=== PATIENT | female | born 1930 | race Caucasian/White ===

== ENCOUNTER 2017-04-28 12:13 | Inpatient (IN) ==
--- NOTE | 2017-04-28 12:21 | Emergency Department Note ---
Disposition Clinical Impression: Atrial fibrillation with RVR Congestive heart failure Qualifiers: Qualified Code(s): I50.9 - Disposition: Admitted As Inpatient Condition: Good Chest Pain HPI - General Stated Complaint: from Dr. Noland// [place] Time Seen by Provider: 04/28/17 12:16 Source: patient Mode of arrival: wheelchair Limitations: no limitations Vital Signs Reviewed: Yes Nursing Notes Reviewed: Yes - History of Present Illness HPI Narrative: Patient presents to the ED from her PCPs office with the chief complaint of a high heart rate. Patient reports that she started feeling her heart beating fast yesterday. She also reports increasing shortness of breath and swelling in her legs over the past several weeks. Has a history of CHF. Denies any chest pain. No fevers, but has been having some cough. - Related Data Home Medications Medication Instructions Recorded Confirmed Aspirin [Lo-Dose Aspirin EC] 81 mg PO DAILY 04/28/17 04/28/17 Latanoprost [Xalatan] 1 drop OP QPM 04/28/17 04/28/17 Levothyroxine [Synthroid] 100 mcg PO QAM 04/28/17 04/28/17 Metoprolol XL (24 HR) Succ [Toprol 50 mg PO DAILY 04/28/17 04/28/17 XL] hydroCHLOROthiazide 25 mg PO DAILY 04/28/17 04/28/17 [Hydrochlorothiazide] Allergies Allergy/AdvReac Type Severity Reaction Status Date / Time No Known Allergies Allergy Verified 04/28/17 12:18 All systems ED: reviewed and negative except as stated. Constitutional: Denies: fever Cardiovascular: Reports: edema Respiratory: Reports: cough, dyspnea Gastrointestinal: Denies: vomiting Physical Exam - General Limitations: no limitations General appearance: alert, in no apparent distress - Head Head exam: atraumatic, normocephalic, normal inspection - Neck Neck exam: Present: normal inspection, full ROM, trachea midline - Chest Chest inspection: Present: normal inspection, symmetric chest wall rise - Respiratory Respiratory exam: Present: normal lung sounds bilaterally, other (Chest Rales bilateral bases) - Cardiovascular Cardiovascular exam: Present: tachycardia, irregular rhythm, normal heart sounds - Abdominal Exam Abdominal exam: Present: soft, Non-Tender. Absent: tenderness, distention, guarding, rebound, rigidity - Extremities Exam Extremities exam: Present: normal inspection, full ROM, pedal edema (3+ pitting edema bilaterally equal). Absent: tenderness - Neurological Exam Neurological exam: Present: alert, oriented X3 - Psychiatric Psychiatric exam: Present: normal affect, normal mood - Skin Skin exam: Present: warm, dry, intact, normal color Course Course Narrative: Patient presenting to the ED in A. fib with RVR. Also, likely a CHF exacerbation. We will workup and admit. Rate control with diltiazem. Vital Signs Temperature 98.4 F 04/28/17 12:18 Pulse Rate 150 04/28/17 12:18 Respiratory Rate 16 04/28/17 12:18 Blood Pressure 159/138 04/28/17 12:18 O2 Sat by Pulse Oximetry 92 04/28/17 12:18 Temperature 98 F 04/28/17 14:24 Pulse Rate 80 04/28/17 14:24 Respiratory Rate 16 04/28/17 14:24 Blood Pressure 126/69 04/28/17 16:13 O2 Sat by Pulse Oximetry 98 04/28/17 14:24 Oxygen Delivery Oxygen Delivery Room Air Chest Pain - Medical Records Medical records reviewed: Yes I reviewed the patient's medical records. - Lab Data Lab results reviewed: Yes I reviewed the patient's lab results. Result diagrams: 04/28/17 12:23 04/28/17 12:23 Lab Results 04/28/17 04/28/17 04/28/17 Range/Units 12:23 12:23 12:23 WBC 5.4 (4.3-11.1) K/mcL RBC 4.79 (3.82-4.97) M/mcL Hgb 14.7 (11.5-15.4) g/dL Hct 45.9 H (35.3-44.9) % MCV 95.8 (83.0-100.0) fL MCH 30.7 (28.0-33.3) pg MCHC 32.0 (31.6-35.5) g/dL RDW 13.3 (11.5-14.5) % Plt Count 189 (140-400) K/mcL MPV 9.7 (9.4-12.4) fL Immature Gran % 0.2 (0-4) % Seg Neutrophils % 58.5 % Lymphocytes % 31.9 % Monocytes % 7.2 % Eosinophils % 1.5 % Basophils % 0.7 % Neutrophils # 3.2 (1.6-8.9) K/mcL Lymphocytes # 1.7 (0.6-4.6) K/mcL Monocytes # 0.4 (0.0-1.3) K/mcL Eosinophils # 0.1 (0.0-0.6) K/mcL Basophils # 0.0 (0.0-0.2) K/mcL PT 11.6 (9.4-12.1) Seconds INR 1.1 APTT 32.8 (26.0-36.0) Seconds Sodium (136-145) mEq/L Potassium (3.5-4.5) mEq/L Chloride (98-109) mEq/L Carbon Dioxide (19-29) mEq/L BUN (7-20) mg/dL Creatinine (0.57-1.11) mg/dL Est GFR ( Amer) (> 60) Est GFR (Non-Af Amer) (> 60) BUN/Creatinine Ratio (6-26) Glucose (70-99) mg/dL Calculated Osmolality (280-300) Calcium (8.6-10.8) mg/dL Phosphorus (2.3-4.7) mg/dL Magnesium (1.6-2.6) mg/dL Troponin I (0-0.03) ng/mL B-Natriuretic Peptide 691 H (0-100) pg/mL TSH (0.350-4.840) mcIU/mL Urine Color (Yellow) Urine Clarity (Clear) Urine pH (5.0-8.0) pH Units Ur Specific [place] (1.010-1.025) Urine Protein (Neg-Trace) mg/dL Urine Glucose (UA) (Normal) mg/dL Urine Ketones (Negative) mg/dL Urine Blood (Negative) Urine Nitrite (Negative) Urine Bilirubin (Negative) Urine Urobilinogen (Normal) mg/dL Ur Leukocyte Esterase (Negative) Urine Microscopic RBC (0-3) per hpf Urine Microscopic WBC (0-3) per hpf Ur Squamous Epith Cells (None-Few) per lpf Urine Bacteria (None-Few) per hpf Hyaline Casts (None-Few) per lpf Ur Culture Indicated? (NO) 04/28/17 04/28/17 04/28/17 Range/Units 12:23 12:23 13:38 WBC (4.3-11.1) K/mcL RBC (3.82-4.97) M/mcL Hgb (11.5-15.4) g/dL Hct (35.3-44.9) % MCV (83.0-100.0) fL MCH (28.0-33.3) pg MCHC (31.6-35.5) g/dL RDW (11.5-14.5) % Plt Count (140-400) K/mcL MPV (9.4-12.4) fL Immature Gran % (0-4) % Seg Neutrophils % % Lymphocytes % % Monocytes % % Eosinophils % % Basophils % % Neutrophils # (1.6-8.9) K/mcL Lymphocytes # (0.6-4.6) K/mcL Monocytes # (0.0-1.3) K/mcL Eosinophils # (0.0-0.6) K/mcL Basophils # (0.0-0.2) K/mcL PT (9.4-12.1) Seconds INR APTT (26.0-36.0) Seconds Sodium 142 (136-145) mEq/L Potassium 3.4 L (3.5-4.5) mEq/L Chloride 103 (98-109) mEq/L Carbon Dioxide 29 (19-29) mEq/L BUN 20 (7-20) mg/dL Creatinine 0.92 (0.57-1.11) mg/dL Est GFR ( Amer) > 60 (> 60) Est GFR (Non-Af Amer) 58 L (> 60) BUN/Creatinine Ratio 22 (6-26) Glucose 147 H (70-99) mg/dL Calculated Osmolality 299 (280-300) Calcium 10.0 (8.6-10.8) mg/dL Phosphorus 2.7 (2.3-4.7) mg/dL Magnesium 2.0 (1.6-2.6) mg/dL Troponin I 0.01 (0-0.03) ng/mL B-Natriuretic Peptide (0-100) pg/mL TSH 9.234 H (0.350-4.840) mcIU/mL Urine Color Yellow (Yellow) Urine Clarity Clear (Clear) Urine pH 6.0 (5.0-8.0) pH Units Ur Specific [place] 1.016 (1.010-1.025) Urine Protein 30 H (Neg-Trace) mg/dL Urine Glucose (UA) Normal (Normal) mg/dL Urine Ketones Negative (Negative) mg/dL Urine Blood Negative (Negative) Urine Nitrite Negative (Negative) Urine Bilirubin Negative (Negative) Urine Urobilinogen Normal (Normal) mg/dL Ur Leukocyte Esterase Negative (Negative) Urine Microscopic RBC 0-3 (0-3) per hpf Urine Microscopic WBC 0-3 (0-3) per hpf Ur Squamous Epith Cells Many H (None-Few) per lpf Urine Bacteria None Seen (None-Few) per hpf Hyaline Casts None Seen (None-Few) per lpf Ur Culture Indicated? NO (NO) - Radiology Data Radiology results reviewed: Yes I reviewed the patient's radiology results. - EKG Data EKG attestation: Yes I reviewed and interpreted this EKG. EKG results narrative: A. fib with RVR, rate 150, QRS 88, QTC 354, left axis deviation, no acute ischemic changes
--- NOTE | 2017-04-28 12:21 | Emergency Department Note ---
Disposition Clinical Impression: Atrial fibrillation with RVR, Congestive heart failure Disposition: Admitted As Inpatient Condition: Good General Adult HPI - General Stated complaint: from Dr. Noland// [place] Time Seen by Provider: 04/28/17 12:16 - Related Data Home Medications Medication Instructions Recorded Confirmed Aspirin [Lo-Dose Aspirin EC] 81 mg PO DAILY 04/28/17 04/28/17 Latanoprost [Xalatan] 1 drop OP QPM 04/28/17 04/28/17 Levothyroxine [Synthroid] 100 mcg PO QAM 04/28/17 04/28/17 Metoprolol XL (24 HR) Succ [Toprol 50 mg PO DAILY 04/28/17 04/28/17 XL] hydroCHLOROthiazide 25 mg PO DAILY 04/28/17 04/28/17 [Hydrochlorothiazide] Allergies Allergy/AdvReac Type Severity Reaction Status Date / Time No Known Allergies Allergy Verified 04/28/17 12:18 Course Vital Signs Temperature 98.4 F 04/28/17 12:18 Pulse Rate 150 04/28/17 12:18 Respiratory Rate 16 04/28/17 12:18 Blood Pressure 159/138 04/28/17 12:18 O2 Sat by Pulse Oximetry 92 04/28/17 12:18 Temperature 98 F 04/29/17 07:15 Pulse Rate 101 04/29/17 07:15 Respiratory Rate 16 04/29/17 07:15 Blood Pressure 104/64 04/29/17 07:15 O2 Sat by Pulse Oximetry 97 04/29/17 07:15 Oxygen Delivery Oxygen Delivery Room Air Medical Decision Making - Lab Data Result diagrams: 04/29/17 03:43 04/29/17 03:43 Lab Results 04/28/17 04/28/17 04/28/17 Range/Units 12:23 12:23 12:23 WBC 5.4 (4.3-11.1) K/mcL RBC 4.79 (3.82-4.97) M/mcL Hgb 14.7 (11.5-15.4) g/dL Hct 45.9 H (35.3-44.9) % MCV 95.8 (83.0-100.0) fL MCH 30.7 (28.0-33.3) pg MCHC 32.0 (31.6-35.5) g/dL RDW 13.3 (11.5-14.5) % Plt Count 189 (140-400) K/mcL MPV 9.7 (9.4-12.4) fL Immature Gran % 0.2 (0-4) % Seg Neutrophils % 58.5 % Lymphocytes % 31.9 % Monocytes % 7.2 % Eosinophils % 1.5 % Basophils % 0.7 % Neutrophils # 3.2 (1.6-8.9) K/mcL Lymphocytes # 1.7 (0.6-4.6) K/mcL Monocytes # 0.4 (0.0-1.3) K/mcL Eosinophils # 0.1 (0.0-0.6) K/mcL Basophils # 0.0 (0.0-0.2) K/mcL PT 11.6 (9.4-12.1) Seconds INR 1.1 APTT 32.8 (26.0-36.0) Seconds Sodium (136-145) mEq/L Potassium (3.5-4.5) mEq/L Chloride (98-109) mEq/L Carbon Dioxide (19-29) mEq/L BUN (7-20) mg/dL Creatinine (0.57-1.11) mg/dL Est GFR ( Amer) (> 60) Est GFR (Non-Af Amer) (> 60) BUN/Creatinine Ratio (6-26) Glucose (70-99) mg/dL Calculated Osmolality (280-300) Calcium (8.6-10.8) mg/dL Phosphorus (2.3-4.7) mg/dL Magnesium (1.6-2.6) mg/dL Troponin I (0-0.03) ng/mL B-Natriuretic Peptide 691 H (0-100) pg/mL TSH (0.350-4.840) mcIU/mL Urine Color (Yellow) Urine Clarity (Clear) Urine pH (5.0-8.0) pH Units Ur Specific [place] (1.010-1.025) Urine Protein (Neg-Trace) mg/dL Urine Glucose (UA) (Normal) mg/dL Urine Ketones (Negative) mg/dL Urine Blood (Negative) Urine Nitrite (Negative) Urine Bilirubin (Negative) Urine Urobilinogen (Normal) mg/dL Ur Leukocyte Esterase (Negative) Urine Microscopic RBC (0-3) per hpf Urine Microscopic WBC (0-3) per hpf Ur Squamous Epith Cells (None-Few) per lpf Urine Bacteria (None-Few) per hpf Hyaline Casts (None-Few) per lpf Ur Culture Indicated? (NO) 04/28/17 04/28/17 04/28/17 Range/Units 12:23 12:23 13:38 WBC (4.3-11.1) K/mcL RBC (3.82-4.97) M/mcL Hgb (11.5-15.4) g/dL Hct (35.3-44.9) % MCV (83.0-100.0) fL MCH (28.0-33.3) pg MCHC (31.6-35.5) g/dL RDW (11.5-14.5) % Plt Count (140-400) K/mcL MPV (9.4-12.4) fL Immature Gran % (0-4) % Seg Neutrophils % % Lymphocytes % % Monocytes % % Eosinophils % % Basophils % % Neutrophils # (1.6-8.9) K/mcL Lymphocytes # (0.6-4.6) K/mcL Monocytes # (0.0-1.3) K/mcL Eosinophils # (0.0-0.6) K/mcL Basophils # (0.0-0.2) K/mcL PT (9.4-12.1) Seconds INR APTT (26.0-36.0) Seconds Sodium 142 (136-145) mEq/L Potassium 3.4 L (3.5-4.5) mEq/L Chloride 103 (98-109) mEq/L Carbon Dioxide 29 (19-29) mEq/L BUN 20 (7-20) mg/dL Creatinine 0.92 (0.57-1.11) mg/dL Est GFR ( Amer) > 60 (> 60) Est GFR (Non-Af Amer) 58 L (> 60) BUN/Creatinine Ratio 22 (6-26) Glucose 147 H (70-99) mg/dL Calculated Osmolality 299 (280-300) Calcium 10.0 (8.6-10.8) mg/dL Phosphorus 2.7 (2.3-4.7) mg/dL Magnesium 2.0 (1.6-2.6) mg/dL Troponin I 0.01 (0-0.03) ng/mL B-Natriuretic Peptide (0-100) pg/mL TSH 9.234 H (0.350-4.840) mcIU/mL Urine Color Yellow (Yellow) Urine Clarity Clear (Clear) Urine pH 6.0 (5.0-8.0) pH Units Ur Specific [place] 1.016 (1.010-1.025) Urine Protein 30 H (Neg-Trace) mg/dL Urine Glucose (UA) Normal (Normal) mg/dL Urine Ketones Negative (Negative) mg/dL Urine Blood Negative (Negative) Urine Nitrite Negative (Negative) Urine Bilirubin Negative (Negative) Urine Urobilinogen Normal (Normal) mg/dL Ur Leukocyte Esterase Negative (Negative) Urine Microscopic RBC 0-3 (0-3) per hpf Urine Microscopic WBC 0-3 (0-3) per hpf Ur Squamous Epith Cells Many H (None-Few) per lpf Urine Bacteria None Seen (None-Few) per hpf Hyaline Casts None Seen (None-Few) per lpf Ur Culture Indicated? NO (NO) Critical Care Time Critical Care Time: Yes Total Critical Care Time: 30 Attestation: New-onset A. fib with RVR requiring Cardizem drip Attestation Statement - Attestation Attestation: I examined this patient and my medical decision-making was reviewed with the Resident Physician. I agree with the documented findings, disposition and treatment plan as described except to the extent set forth below. [id number] time provided. Patient said at the recommendation of her primary care provider after being identified to have a tachycardic arrhythmia. Patient appears distressed. Narrow complex irregularly irregular rhythm identified on the monitor. Bilateral peripheral edema on exam. Patient seen in conjunction with Dr. Zuniga
[2017-04-28 12:36] LABS: Basophils % 0.7 %; Eosinophils # 0.1 K/mcL (0.0-0.6); Eosinophils % 1.5 %; Hematocrit 45.9 % (35.3-44.9); Hemoglobin 14.7 g/dL (11.5-15.4); Immature Granulocytes % 0.2 % (0-4); Lymphocytes # 1.7 K/mcL (0.6-4.6); Lymphocytes % 31.9 %; Mean Corpuscular Hemoglobin 30.7 pg (28.0-33.3); Mean Corpuscular Volume 95.8 fL (83.0-100.0); Mean Platelet Volume 9.7 fL (9.4-12.4); Monocytes # 0.4 K/mcL (0.0-1.3); Monocytes % 7.2 %; Neutrophils # 3.2 K/mcL (1.6-8.9); Platelet Count 189 K/mcL (140-400); Red Blood Count 4.79 M/mcL (3.82-4.97); Red Cell Distribution Width 13.3 % (11.5-14.5); Segmented Neutrophils % 58.5 %
[2017-04-28 12:40] LABS: INR 1.1; Prothrombin Time 11.6 Seconds (9.4-12.1)
[2017-04-28 12:42] LABS: Activated Partial Thrombo Time 32.8 Seconds (26.0-36.0)
[2017-04-28 12:48] LABS: BUN/Creatinine Ratio 22 (6-26); Blood Urea Nitrogen 20 mg/dL (7-20); Carbon Dioxide 29 mEq/L (19-29); Chloride 103 mEq/L (98-109); Glucose 147 mg/dL (70-99); Osmolality,Calculated 299 (280-300); Phosphorous 2.7 mg/dL (2.3-4.7); Potassium 3.4 mEq/L (3.5-4.5); Sodium 142 mEq/L (136-145); eGFR For African Americans > 60 (> 60); eGFR For Non-African Americans 58 (> 60)
[2017-04-28] MEDS ORDERED: Azithromycin 500 MG in D5% in Water 250 ML IVPB ONE (13:13)
[2017-04-28 13:47] LABS: Bilirubin,Urine Negative (Negative); Blood,Urine Negative (Negative); Clarity,Urine Clear (Clear); Color,Urine Yellow (Yellow); Glucose,Urine (UA) Normal (Normal); Ketones,Urine Negative (Negative); Leukocyte Esterase,Urine Negative (Negative); Nitrite,Urine Negative (Negative); Protein,Urine 30 mg/dL (Neg-Trace); Specific Gravity,Urine 1.016 (1.010-1.025); Urobilinogen,Urine Normal (Normal)
[2017-04-28 13:49] LABS: Bacteria,Urine None Seen per hpf (None-Few); Hyaline Casts,Urine None Seen per lpf (None-Few); RBC,Urine 0-3 per hpf (0-3); Squamous Epithelial Cell,Urine Many per lpf (None-Few); WBC,Urine 0-3 per hpf (0-3)
[2017-04-28 13:50] LABS: Thyroid Stimulating Hormone 9.234 mcIU/mL (0.350-4.840)
--- NOTE | 2017-04-28 14:46 | Internal Med History&Physical ---
Date of Encounter: 04/28/17 Time of Encounter: 14:41 Assessment and Plan (1) Atrial fibrillation with RVR Current visit: Yes Status: Acute Patient was started in the emergency room Jackie marie. Will start patient on lovenox as her JO-ANN-Vasc score is atleast 4. Check echocardiogram. (2) Congestive heart failure Current visit: Yes Status: Acute Likely due to diastolic dysfunction related to atrial fibrillation with rapid ventricular response. We start the patient on Lasix 40 mg IV daily. Strict intake and output. She never had any workup to r/o coronary artery disease before. Will trend troponin check echocardiogram and cardiology consultation Qualifiers: Qualified Code(s): I50.9 - Heart failure, unspecified Internal Medicine - H&P: HPI Chief complaint: LE swelling History of present illness: Ms. Lopez is a 86 year old female who presents to the emergency room today sent from PCP office and her main complaint was lower extremity swelling. Over the past week or so patient has been noticing bilateral lower extremity swelling pitting in nature. She has also been noticing exertional shortness of breath and shortness of breath laying flat improved by sitting. She denies any sputum production fevers chills. She has been noticing palpitations and wants found to be in atrial fibrillation with Rapid ventricular response. Patient denies any prior cardiac history. No prior known history of coronary artery disease. Past Med Surg Social Fam HX - Past Medical History Medical history: CHF, hyperlipidemia, hypertension Psychiatric history: no psych history - Social History Smoking Status: Never smoker Smokeless Tobacco Status: No Alcohol use: none Drug use: none - Family History Brother History Unknown: Yes Living Status: Hx Family Cardiac Disorders: Yes Father Living Status: Hx Family Cardiac Disorders: Yes Internal Medicine - H&P: Meds Aspirin [Lo-Dose Aspirin EC] 81 mg PO DAILY 04/28/17 [History] Latanoprost [Xalatan] 1 drop OP QPM 04/28/17 [History] Levothyroxine [Synthroid] 100 mcg PO QAM 04/28/17 [History] Metoprolol XL (24 HR) Succ [Toprol XL] 50 mg PO DAILY 04/28/17 [History] hydroCHLOROthiazide [Hydrochlorothiazide] 25 mg PO DAILY 04/28/17 [History] 3 Allergy/AdvReac Type Severity Reaction Status Date / Time No Known Allergies Allergy Verified 04/28/17 12:18 All Systems PM: A 10-system review of systems was performed and is negative for pertinent findings except as documented above in the HPI. Review of systems: 10 point TVU assistances negative except for HPI - Constitutional Vitals: Temp Pulse Resp BP Pulse Ox 98 F 80 16 155/99 98 04/28/17 14:24 04/28/17 14:24 04/28/17 14:24 04/28/17 14:24 04/28/17 14:24 Exam: Gen.: patient is alert oriented times 3 cardiac: variable intensity of S1 due to AFib chest: bilateral basal rales abdomen soft nontender nondistended normal bowel sounds lower extremity 2+ swelling. Neuro: no new focal deficits Internal Med - H&P Results - Labs CBC & Chem 7: 04/28/17 12:23 04/28/17 12:23 Labs: Urine 04/28/17 Range/Units 13:38 Urine Color Yellow (Yellow) Urine Clarity Clear (Clear) Urine pH 6.0 (5.0-8.0) pH Units Ur Specific [place] 1.016 (1.010-1.025) Urine Protein 30 H (Neg-Trace) mg/dL Urine Glucose (UA) Normal (Normal) mg/dL
[2017-04-28] MEDS: Furosemide 40 MG/4 ML VIAL IVP SCH (16:22)
[2017-04-28] MEDS: *HR* Enoxaparin 80 MG/0.8 ML SYRINGE SQ SCH (16:23)
[2017-04-28] MEDS: Latanoprost 2.5 ML BOTTLE BOTH EYES SCH (16:24)
[2017-04-28] MEDS ORDERED: 0.9 % Sodium Chloride 250 ML ONE (17:42)
--- NOTE | 2017-04-28 19:13 | Electrocardiograph Report ---
[place] [id number] Test Date: 2017-04-28 Pat Name: Chanda Lopez Department: 103 Room: 2NE22 Gender: F Music Professor: MSC : [id number] Requested By: Juancarlos Zuniga Order Number: [id number] Reading MD: Sonny Lloyd MD Measurements Intervals [place] Rate: 150 P: NE: 0 QRS: -84 QRSD: 88 T: 162 QT: 268 QTc: 354 Interpretive Statements ATRIAL FIBRILLATION WITH RAPID VENTRICULAR RESPONSE MARKED LEFT AXIS DEVIATION Poor R wave progression ANTEROSEPTAL MYOCARDIAL INFARCTION, PROBABLY OLD Electronically Signed On 04-28-2017 19:11:31 EDT by Sonny Lloyd MD
[2017-04-28 21:33] LABS: Magnesium 1.7 mg/dL (1.6-2.6); Potassium 3.6 mEq/L (3.5-4.5)
[2017-04-29 04:15] LABS: Basophils % 0.5 %; Eosinophils # 0.2 K/mcL (0.0-0.6); Eosinophils % 3.7 %; Hematocrit 37.1 % (35.3-44.9); Immature Granulocytes % 0.2 % (0-4); Lymphocytes # 1.6 K/mcL (0.6-4.6); Lymphocytes % 39.8 %; Mean Corpuscular HGB Conc 32.6 g/dL (31.6-35.5); Mean Corpuscular Hemoglobin 30.8 pg (28.0-33.3); Mean Corpuscular Volume 94.4 fL (83.0-100.0); Mean Platelet Volume 9.8 fL (9.4-12.4); Monocytes # 0.3 K/mcL (0.0-1.3); Platelet Count 165 K/mcL (140-400); Red Blood Count 3.93 M/mcL (3.82-4.97); Red Cell Distribution Width 13.4 % (11.5-14.5); Segmented Neutrophils % 47.8 %
[2017-04-29 04:22] LABS: Hemoglobin 12.1 g/dL (11.5-15.4)
[2017-04-29 04:27] LABS: BUN/Creatinine Ratio 27 (6-26); Blood Urea Nitrogen 20 mg/dL (7-20); Calcium 9.1 mg/dL (8.6-10.8); Carbon Dioxide 31 mEq/L (19-29); Chloride 105 mEq/L (98-109); Creatine Kinase 30 Units/L (29-168); Glucose 92 mg/dL (70-99); Magnesium 1.7 mg/dL (1.6-2.6); Osmolality,Calculated 300 (280-300); Potassium 3.2 mEq/L (3.5-4.5); Sodium 144 mEq/L (136-145); eGFR For African Americans > 60 (> 60); eGFR For Non-African Americans > 60 (> 60)
[2017-04-29] MEDS: *HR* Enoxaparin 80 MG/0.8 ML SYRINGE SQ SCH ×2 (06:06→21:17)
[2017-04-29] MEDS ORDERED: Metoprolol XL (24 HR) Succ 50 MG TAB.ER.24H PO SCH (09:00)
--- NOTE | 2017-04-29 09:52 | Internal Med Progress Note ---
<Mary Jo Jones - Last Filed: 04/29/17 10:09> Date of Encounter: 04/29/17 Time of Encounter: 09:50 - Assessment and plan (1) Atrial fibrillation with RVR Current Visit: Yes Status: Acute Assessment and plan: new onset a fib with RVR during annual check-up at her PCP. Currently on cardizem gtt and HR in the 90s to "one-teens". Cardizem gtt Lovenox due to CHADSVASc score 4 Lasix 40 mg IV BID for pedal edema Cardiology consulted, appreciate recommendations Echo shows normal systolic function, EF 65%, indeterminate diastolic function due to a fib, mildly dilated right ventricle with normal function, severely dilated atria, mild aortic stenosis, mild aortic regurgitation, mild tricuspid regurgitation (2) Congestive heart failure Current Visit: Yes Status: Ruled-out Assessment and plan: no h/o CHF, BNP 691 on admission echo report shows normal LV systolic function, LVEF 65%. indeterminate diastolic function due to atrial fibrillation Qualifiers: Congestive heart failure type: unspecified congestive heart failure type Congestive heart failure chronicity: unspecified congestive heart failure chronicity Qualified Code(s): I50.9 - Heart failure, unspecified (3) Hypothyroidism Current Visit: Yes Status: Chronic Assessment and plan: high TSH 9.234 home synthroid 100 mcg check free T3, T4 synthroid dose will most likely need adjusted Qualifiers: Hypothyroidism type: unspecified Qualified Code(s): E03.9 - Hypothyroidism , unspecified (4) HTN (hypertension) Current Visit: Yes Status: Chronic Assessment and plan: stable continue home medications Qualifiers: Hypertension type: unspecified Qualified Code(s): I10 - Essential (primary ) hypertension (5) Hypokalemia Current Visit: Yes Status: Acute Assessment and plan: lasix being used as therapy for pedal edema - start KCL 20 meq BID while on lasix therapy continue to monitor with daily labs - Subjective Interval history: Patient without complaints this morning, no shortness of breath. States her pedal edema is the same as yesterday. - Constitutional Vitals: Temp Pulse Resp BP Pulse Ox 98 F 101 16 104/64 97 04/29/17 07:15 04/29/17 07:15 04/29/17 07:15 04/29/17 07:15 04/29/17 07:15 General appearance: Present: A&O X 3, pleasant, answers questions appropriately - Head Head exam: Present: atraumatic, normocephalic - Eye Eye exam: Present: PERRL, conjuntiva pink, sclera anicteric Pupils: Present: PERRL - Neck Neck exam general surgery: Present: supple, trachea midline - Respiratory Respiratory exam: Present: CTAB. Absent: accessory muscle use, rales, rhonchi, wheezes - Cardiovascular Cardiovascular exam: Present: irregular rhythm, +S1, +S2, tachycardia. Absent: diastolic murmur, systolic murmur - GI/Abdominal GI/Abdominal exam: Present: normal bowel sounds, soft, no peritoneal signs. Absent: distended, tenderness - Extremities Exam Extremities exam: Present: pedal edema (2-3+ past the knees bilaterally), tenderness (mild due to pitting edema), warm - Neurological Exam Neurological exam: Present: CN II-XII intact, oriented X3, no focal deficits. Absent: facial droop, speech deficit - Skin Skin exam: Present: dry, intact, warm Internal Medicine: Result - Labs CBC & Chem 7: 04/29/17 03:43 04/29/17 03:43 Labs: Short CBC 04/29/17 Range/Units 03:43 WBC 4.1 L (4.3-11.1) K/mcL Hgb 12.1 D (11.5-15.4) g/dL Hct 37.1 (35.3-44.9) % Plt Count 165 (140-400) K/mcL Neutrophils # 2.0 (1.6-8.9) K/mcL BMP 04/28/17 04/29/17 21:02 03:43 Sodium 144 Potassium 3.6 3.2 L Chloride 105 Carbon Dioxide 31 H BUN 20 Creatinine 0.75 Glucose 92 Calcium 9.1 Cardiac Enzymes 04/28/17 04/29/17 Range/Units 21:02 03:43 Troponin I 0.01 0.02 (0-0.03) ng/mL - ABG Interpretation ABG results: PT/INR, D-dimer PT 11.6 Seconds (9.4-12.1) 04/28/17 12:23 - Impressions Impressions Echocardiogram 04/28/17 18:48 Impressions: Normal LV systolic function, LVEF 65%. Indeterminate diastolic function due to atrial fibrillation. Mildly dilated right ventricle with normal function. Severely dilated left atrium. Severely dilated right atrium. Mild aortic stenosis. Mild aortic regurgitation. Mild tricuspid regurgitation. No evidence of pulmonary hypertension. Left Ventricular Wall Motion: Rest Echo Findings All wall segments showed normal motion. Findings: Study Quality * Technically adequate study. ECG Findings * Atrial fibrillation. Left Ventricle * Normal LV systolic function, LVEF 65%. * Normal LV chamber size and wall thickness. * Indeterminate diastolic function due to atrial fibrillation. Right Ventricle * Mildly dilated right ventricle with normal function. Left Atrium * Severely dilated left atrium. Right Atrium * Severely dilated right atrium. Aorta * Normally sized aortic root. Pericardium * There is a trivial pericardial effusion present. IVC * The IVC is not well evaluated. Aortic Valve * Trileaflet aortic valve with moderately thickened/calcified leaflets. * Mild aortic stenosis. * Mild aortic regurgitation. Mitral Valve * Mild mitral annular calcification * No mitral stenosis. * Trace mitral regurgitation. Tricuspid Valve * Normal tricuspid valve structure. * No tricuspid stenosis. * Mild tricuspid regurgitation. * No evidence of pulmonary hypertension. Pulmonic Valve * Normal pulmonic valve structure. * No pulmonic stenosis. * Trace pulmonic regurgitation. - VTE Documentation of Mechanical Device: Intermittent pneumatic compression device Consult Discharge Plan - Plan Referrals: Peyman Noland Jr, MD [Primary Care Provider] - <Imer Erickson - Last Filed: 04/29/17 19:59> Date of Encounter: 04/29/17 - Assessment and plan (1) Atrial fibrillation Current Visit: Yes Status: Acute Qualifiers: Atrial fibrillation type: persistent Qualified Code(s): I48.1 - Persistent atrial fibrillation (2) Hypokalemia Current Visit: Yes Status: Acute (3) HTN (hypertension) Current Visit: Yes Status: Chronic Qualifiers: Hypertension type: essential hypertension Qualified Code(s): I10 - Essential (primary) hypertension (4) Hypothyroidism Current Visit: Yes Status: Chronic Qualifiers: Hypothyroidism type: acquired Qualified Code(s): E03.9 - Hypothyroidism, unspecified (5) Congestive heart failure Current Visit: Yes Status: Suspected Qualifiers: Congestive heart failure type: diastolic Congestive heart failure chronicity: chronic Qualified Code(s): I50.32 - Chronic diastolic (congestive ) heart failure - Constitutional Vitals: Temp Pulse Resp BP Pulse Ox 97.7 F 99 18 115/85 98 04/29/17 15:00 04/29/17 15:00 04/29/17 15:00 04/29/17 15:00 04/29/17 15:00 Internal Medicine: Result - Labs CBC & Chem 7: 04/29/17 03:43 04/29/17 03:43 Labs: Short CBC 04/29/17 Range/Units 03:43 WBC 4.1 L (4.3-11.1) K/mcL Hgb 12.1 D (11.5-15.4) g/dL Hct 37.1 (35.3-44.9) % Plt Count 165 (140-400) K/mcL Neutrophils # 2.0 (1.6-8.9) K/mcL BMP 04/28/17 04/29/17 21:02 03:43 Sodium 144 Potassium 3.6 3.2 L Chloride 105 Carbon Dioxide 31 H BUN 20 Creatinine 0.75 Glucose 92 Calcium 9.1 Cardiac Enzymes 04/28/17 04/29/17 Range/Units 21:02 03:43 Troponin I 0.01 0.02 (0-0.03) ng/mL - ABG Interpretation ABG results: PT/INR, D-dimer PT 11.6 Seconds (9.4-12.1) 04/28/17 12:23 - Impressions Impressions Echocardiogram 04/28/17 18:48 Impressions: Normal LV systolic function, LVEF 65%. Indeterminate diastolic function due to atrial fibrillation. Mildly dilated right ventricle with normal function. Severely dilated left atrium. Severely dilated right atrium. Mild aortic stenosis. Mild aortic regurgitation. Mild tricuspid regurgitation. No evidence of pulmonary hypertension. Left Ventricular Wall Motion: Rest Echo Findings All wall segments showed normal motion. Findings: Study Quality * Technically adequate study. ECG Findings * Atrial fibrillation. Left Ventricle * Normal LV systolic function, LVEF 65%. * Normal LV chamber size and wall thickness. * Indeterminate diastolic function due to atrial fibrillation. Right Ventricle * Mildly dilated right ventricle with normal function. Left Atrium * Severely dilated left atrium. Right Atrium * Severely dilated right atrium. Aorta * Normally sized aortic root. Pericardium * There is a trivial pericardial effusion present. IVC * The IVC is not well evaluated. Aortic Valve * Trileaflet aortic valve with moderately thickened/calcified leaflets. * Mild aortic stenosis. * Mild aortic regurgitation. Mitral Valve * Mild mitral annular calcification * No mitral stenosis. * Trace mitral regurgitation. Tricuspid Valve * Normal tricuspid valve structure. * No tricuspid stenosis. * Mild tricuspid regurgitation. * No evidence of pulmonary hypertension. Pulmonic Valve * Normal pulmonic valve structure. * No pulmonic stenosis. * Trace pulmonic regurgitation. - Attending Attestation I examined this patient and my medical decision-making was reviewed with the Resident Physician on 04/29/17. I agree with the documented findings, disposition and treatment plan as described except to the extent set forth below. Ms Lopez is currently admitted with rapid atrial fibrillation. She remains moderate to high risk due to potential for worsening cardiac status. She remains on IV Cardizem drip. Ms Lopez denies issues. Still on Cardizem drip. No fever or chills. No GI issues. Exam Alert. Comfortable Heart irreg - not tachy now Lungs clear Abd soft I/P 1. Rapid a fib 2. HTN Further diagnoses and plan as above.
[2017-04-29] MEDS: Furosemide 40 MG/4 ML VIAL IVP SCH (10:18)
[2017-04-29] MEDS: Aspirin Enteric Coated 81 MG Tablet PO SCH (10:18)
[2017-04-29] MEDS ORDERED: Metoprolol XL (24 HR) Succ 25 MG TAB.ER.24H PO ONE (10:30)
[2017-04-29 10:47] LABS: Triiodothyronine (T3) Free 2.32 pg/mL (1.71-3.71)
--- NOTE | 2017-04-29 10:57 | Cardiology Consult Note ---
Date of Encounter: 04/29/17 Time of Encounter: 09:00 Assessment and Plan (1) Atrial fibrillation with RVR Current Visit: Yes Status: Acute Atrial fibrillation with RVR. Unknown timining of onset. C/o palpitations for one week. Bilateral atrium enlarged on TTE suggesting longer duration. TTE completed showed EF 65%. Severely enlarged bilateral atrium. There is mild aortic stenosis, mild aortic regurgitation, and mild tricuspid regurgitation. TSH- 9.234. Hospitalist following. On IV cardizem. AVg HR 107 bpm on 12 hour telemetry review. Agree with increasing toprol XL as tolerated. Rate control is recommended. She is a CHADS VASc= 4 for HTN, gender, and age2. I discussed AC with warfarin or NOAC. SHe was previously on warfarin for DVT. She agrees to warfarin or NOAC. I will send RX for eliquis through pharmacy to [facility] check. (2) Congestive heart failure Current Visit: Yes Status: Ruled-out Acute diastolic CHF in the setting of afib with RVR. TTE shows EF 65% Presents with fluid overload. BLE edema noted. CXR shows pulmonary edema. BNP 691. Agree with IV lasix. Will give extra dose today. Potassium 3.2- replaced. Strict I&O and daily weights. Qualifiers: Congestive heart failure type: diastolic Congestive heart failure chronicity: unspecified congestive heart failure chronicity Qualified Code(s) : I50.30 - Unspecified diastolic (congestive) heart failure (3) HTN (hypertension) Current Visit: Yes Status: Chronic Continue to monitor. Qualifiers: Hypertension type: essential hypertension Qualified Code(s): I10 - Essential (primary) hypertension Discussion w patient/family: The assessment and plan as outlined above was discussed with the patient and/or family members who expressed understanding and agreement. All questions were answered. Thank you for involving us in the care of your patient. Please call with any questions. History of Present Illness Consult date: 04/29/17 Requesting physician: Imer Erickson Consult reason: atrial fibrillation with RVR, Acute CHF Chief complaint: Palpitations History of present illness: Ms. Lopez is a 86 year old female with a history of HTN, DVT, and hypothyroidism who presented from PCP office when she was found to be in atrial fibrillation with RVR. She c/o palpitations with exertion and BLE edema for one week. Cardiology consulted for atrial fibrillation with RVR and CHF. She denies previous cardiac history. Denies chest pain or SOB. States that her atenolol was on shortage and she was changed to metoprolol a couple of weeks ago. Past Med Surg Social Fam HX - Past Medical History Medical history: hyperlipidemia, hypertension, other (hypothyroidism) Psychiatric history: no psych history - Social History Smoking Status: Never smoker Smokeless Tobacco Status: No Alcohol use: none Drug use: none - Family History Brother History Unknown: Yes Living Status: Hx Family Cardiac Disorders: Yes Father Living Status: Hx Family Cardiac Disorders: Yes Medications and Allergies Aspirin [Lo-Dose Aspirin EC] 81 mg PO DAILY 04/28/17 [History] Latanoprost [Xalatan] 1 drop OP QPM 04/28/17 [History] Levothyroxine [Synthroid] 100 mcg PO QAM 04/28/17 [History] Metoprolol XL (24 HR) Succ [Toprol XL] 50 mg PO DAILY 04/28/17 [History] hydroCHLOROthiazide [Hydrochlorothiazide] 25 mg PO DAILY 04/28/17 [History] 3 Allergy/AdvReac Type Severity Reaction Status Date / Time No Known Allergies Allergy Verified 04/28/17 12:18 All Systems Review: A 10-system review of systems was performed and is negative for pertinent findings except as documented above in the HPI. Physical Examination Vital Signs, Last 4 Hours Temp Pulse Resp BP Pulse Ox 04/29/17 07:15 98 F 101 16 104/64 97 General: Conversant, No Apparent Distress HEENT: Atraumatic, Normocephaly, Mucus Membranes Moist Neck: No JVD, Normal carotid pulses Cardiac: Other (Irregularly irregular) Lungs: Normal Breath Sounds, No Wheeze, Rales, Rhonchi Neuro: Alert and responsive, No focal deficits noted Abdomen: Soft, Non-Tender Skin: No rashes noted on visualized skin Musculoskeletal: No Chest Wall Tenderness Extremities: No Clubbing, No Cyanosis, Normal Pulses, Other (1+ BLE edema in ankles) Results 04/29/17 03:43 04/29/17 03:43 Lab Results 04/28/17 04/28/17 04/29/17 21:02 21:02 03:43 WBC 4.1 L Hgb 12.1 D Hct 37.1 Plt Count 165 Sodium Potassium 3.6 Chloride Carbon Dioxide BUN Creatinine Glucose Calcium Magnesium 1.7 Troponin I 0.01 04/29/17 04/29/17 03:43 03:43 WBC Hgb Hct Plt Count Sodium 144 Potassium 3.2 L Chloride 105 Carbon Dioxide 31 H BUN 20 Creatinine 0.75 Glucose 92 Calcium 9.1 Magnesium 1.7 Troponin I 0.02 - Imaging and Cardiology Echo: report reviewed - EKG Interpretation EKG results cardiology: personally reviewed Consult Discharge Plan - Plan Referrals: Peyman Noland Jr, MD [Primary Care Provider] -
[2017-04-29] MEDS ORDERED: Furosemide 40 MG/4 ML VIAL IVP ONE (15:00)
[2017-04-29] MEDS: Latanoprost 2.5 ML BOTTLE BOTH EYES SCH (21:17)
[2017-04-30] MEDS: *HR* Enoxaparin 80 MG/0.8 ML SYRINGE SQ SCH ×2 (06:29→17:10)
[2017-04-30] MEDS: Aspirin Enteric Coated 81 MG Tablet PO SCH (08:35)
[2017-04-30] MEDS: Furosemide 40 MG/4 ML VIAL IVP SCH ×2 (08:37→20:28)
[2017-04-30 08:58] LABS: BUN/Creatinine Ratio 26 (6-26); Blood Urea Nitrogen 20 mg/dL (7-20); Calcium 9.5 mg/dL (8.6-10.8); Carbon Dioxide 33 mEq/L (19-29); Chloride 103 mEq/L (98-109); Glucose 105 mg/dL (70-99); Osmolality,Calculated 299 (280-300); Potassium 3.5 mEq/L (3.5-4.5); Sodium 143 mEq/L (136-145); eGFR For African Americans > 60 (> 60); eGFR For Non-African Americans > 60 (> 60)
[2017-04-30] MEDS ORDERED: Metoprolol XL (24 HR) Succ 50 MG TAB.ER.24H PO SCH (09:00)
--- NOTE | 2017-04-30 09:27 | Internal Med Progress Note ---
Addendum entered and electronically signed by Mary Jo Jones DO 10:16: Physical exam: Head: normocephalic, atraumatic Eye: PERRL, conjunctiva pink, sclera anicteric Respiratory: CTAB CV: irregularly irregular rhythm, no murmurs GI: soft, non-tender, bowel sounds present Extremities: 2-3+ pedal edema to the knees bilaterally, mild tenderness due to pitting edema Neuro: A&Ox3, no focal deficits Skin: warm, dry, intact Original Note: <Mary Jo Jones - Last Filed: 04/30/17 09:24> Date of Encounter: 04/30/17 Time of Encounter: 09:24 - Assessment and plan (1) Atrial fibrillation with RVR Current Visit: Yes Status: Acute Assessment and plan: new onset a fib with RVR during annual check-up at her PCP. Cardiology consulted, appreciate recommendations Echo shows normal systolic function, EF 65%, indeterminate diastolic function due to a fib, mildly dilated right ventricle with normal function, severely dilated atria, mild aortic stenosis, mild aortic regurgitation, mild tricuspid regurgitation Still with significant pedal edema. Cardizem gtt stopped this AM. Metoprolol increased form 50 to 75 mg daily yesterday. Patient planning to discharge with coumadin for anticoagulation. Lovenox due to CHADSVASc score 4 Lasix 40 mg IV BID for pedal edema (2) Congestive heart failure Current Visit: Yes Status: Acute Assessment and plan: no h/o CHF, BNP 691 on admission echo report shows normal LV systolic function, LVEF 65%. indeterminate diastolic function due to atrial fibrillation Qualifiers: Congestive heart failure type: diastolic Congestive heart failure chronicity: chronic Qualified Code(s): I50.32 - Chronic diastolic (congestive ) heart failure (3) Hypothyroidism Current Visit: Yes Status: Chronic Assessment and plan: high TSH 9.234; free T3, T4 both normal continue home synthroid 100 mcg Qualifiers: Hypothyroidism type: acquired Qualified Code(s): E03.9 - Hypothyroidism, unspecified (4) HTN (hypertension) Current Visit: Yes Status: Chronic Assessment and plan: stable continue home medications Qualifiers: Hypertension type: essential hypertension Qualified Code(s): I10 - Essential (primary) hypertension (5) Hypokalemia Current Visit: Yes Status: Resolved Assessment and plan: resolved lasix being used as therapy for pedal edema - start KCL 20 meq BID while on lasix therapy continue to monitor with daily labs - Subjective Interval history: Patient without complaints this morning, no shortness of breath. States her pedal edema is the same as yesterday. - Constitutional Vitals: Temp Pulse Resp BP Pulse Ox 98 F 92 16 93/63 94 04/30/17 07:17 04/30/17 07:17 04/30/17 07:17 04/30/17 07:17 04/30/17 07:17 General appearance: Present: A&O X 3, pleasant, answers questions appropriately Internal Medicine: Result - Labs CBC & Chem 7: 04/29/17 03:43 04/30/17 08:40 Labs: BMP 04/29/17 04/30/17 03:43 08:40 Sodium 144 143 Potassium 3.2 L 3.5 Chloride 105 103 Carbon Dioxide 31 H 33 H BUN 20 20 Creatinine 0.75 0.78 Glucose 92 105 H Calcium 9.1 9.5 - ABG Interpretation ABG results: PT/INR, D-dimer PT 11.6 Seconds (9.4-12.1) 04/28/17 12:23 - Impressions Impressions Echocardiogram 04/28/17 18:48 Impressions: Normal LV systolic function, LVEF 65%. Indeterminate diastolic function due to atrial fibrillation. Mildly dilated right ventricle with normal function. Severely dilated left atrium. Severely dilated right atrium. Mild aortic stenosis. Mild aortic regurgitation. Mild tricuspid regurgitation. No evidence of pulmonary hypertension. Left Ventricular Wall Motion: Rest Echo Findings All wall segments showed normal motion. Findings: Study Quality * Technically adequate study. ECG Findings * Atrial fibrillation. Left Ventricle * Normal LV systolic function, LVEF 65%. * Normal LV chamber size and wall thickness. * Indeterminate diastolic function due to atrial fibrillation. Right Ventricle * Mildly dilated right ventricle with normal function. Left Atrium * Severely dilated left atrium. Right Atrium * Severely dilated right atrium. Aorta * Normally sized aortic root. Pericardium * There is a trivial pericardial effusion present. IVC * The IVC is not well evaluated. Aortic Valve * Trileaflet aortic valve with moderately thickened/calcified leaflets. * Mild aortic stenosis. * Mild aortic regurgitation. Mitral Valve * Mild mitral annular calcification * No mitral stenosis. * Trace mitral regurgitation. Tricuspid Valve * Normal tricuspid valve structure. * No tricuspid stenosis. * Mild tricuspid regurgitation. * No evidence of pulmonary hypertension. Pulmonic Valve * Normal pulmonic valve structure. * No pulmonic stenosis. * Trace pulmonic regurgitation. - VTE Documentation of Mechanical Device: Intermittent pneumatic compression device Consult Discharge Plan - Plan Additional Instructions: pcp requested Referrals: Peyman Noland Jr, MD [Primary Care Provider] - <Imer Erickson - Last Filed: 04/30/17 18:43> Date of Encounter: 04/30/17 - Assessment and plan (1) Atrial fibrillation Current Visit: Yes Status: Acute Qualifiers: Atrial fibrillation type: persistent Qualified Code(s): I48.1 - Persistent atrial fibrillation (2) Hypokalemia Current Visit: Yes Status: Resolved (3) HTN (hypertension) Current Visit: Yes Status: Chronic Qualifiers: Hypertension type: essential hypertension Qualified Code(s): I10 - Essential (primary) hypertension (4) Hypothyroidism Current Visit: Yes Status: Chronic Qualifiers: Hypothyroidism type: acquired Qualified Code(s): E03.9 - Hypothyroidism, unspecified (5) Congestive heart failure Current Visit: Yes Status: Acute Qualifiers: Congestive heart failure type: diastolic Congestive heart failure chronicity: acute on chronic Qualified Code(s): I50.33 - Acute on chronic diastolic (congestive) heart failure - Constitutional Vitals: Temp Pulse Resp BP Pulse Ox 97.9 F 94 16 112/85 96 04/30/17 15:20 04/30/17 15:20 04/30/17 15:20 04/30/17 15:20 04/30/17 15:20 Internal Medicine: Result - Labs CBC & Chem 7: 04/29/17 03:43 04/30/17 08:40 Labs: BMP 04/30/17 08:40 Sodium 143 Potassium 3.5 Chloride 103 Carbon Dioxide 33 H BUN 20 Creatinine 0.78 Glucose 105 H Calcium 9.5 - ABG Interpretation ABG results: PT/INR, D-dimer PT 11.6 Seconds (9.4-12.1) 04/28/17 12:23 - Attending Attestation I examined this patient and my medical decision-making was reviewed with the Resident Physician on 04/30/17. I agree with the documented findings, disposition and treatment plan as described except to the extent set forth below. Ms Lopez is currently admitted for acute exac CHF and rapid a fib. She remains moderate to high risk due to potential for worsening cardiac status. Ms Lopez is doing OK. She denies CP. No fever or chills. No GI issues. Exam Alert. Comfortable Mucus membranes dry Heart irreg - not tachy No wheeze Edema still present I/P 1. A fib 2. CHF Further diagnoses and plan as above.
[2017-04-30] MEDS ORDERED: Metoprolol XL (24 HR) Succ 25 MG TAB.ER.24H PO ONE ×2 (10:55→11:02)
--- NOTE | 2017-04-30 11:05 | Cardiology Progress Note ---
Date of Encounter: 04/30/17 Time of Encounter: 10:00 Assessment and Plan (1) Atrial fibrillation with RVR Current Visit: Yes Status: Acute Atrial fibrillation with RVR. Unknown timining of onset. C/o palpitations for one week. Bilateral atrium enlarged on TTE suggesting longer duration. TTE completed showed EF 65%. Severely enlarged bilateral atrium. There is mild aortic stenosis, mild aortic regurgitation, and mild tricuspid regurgitation. TSH- 9.234. Hospitalist following. On IV cardizem. AVg HR 100 bpm on 12 hour telemetry review. HR currently 90- 100. Agree with increasing toprol XL as tolerated. Increase to 100 mg today and d/c cardizem gtt. Rate control is recommended. She is a CHADS VASc= 4 for HTN, gender, and age2. I discussed AC with warfarin or NOAC. She was previously on warfarin for DVT. [employer] hubbard check was 95$. Patient prefers coumadin due to cost. Start coumadin with pharmacy to dose. I will start coumadin clinic referral. Goal INR 2.0-3.0. (2) Congestive heart failure Current Visit: Yes Status: Acute Acute diastolic CHF in the setting of afib with RVR. TTE shows EF 65% Presents with fluid overload. Continues to have significant BLE edema. CXR shows pulmonary edema. BNP 691. Net negative 20 ml. Increase lasix to 40 mg BID. Low sodium diet. Potassium 3.5. Strict I&O and daily weights. Qualifiers: Congestive heart failure type: diastolic Congestive heart failure chronicity: chronic Qualified Code(s): I50.32 - Chronic diastolic (congestive ) heart failure (3) HTN (hypertension) Current Visit: Yes Status: Chronic Continue to monitor. Now with low b/p. Qualifiers: Hypertension type: essential hypertension Qualified Code(s): I10 - Essential (primary) hypertension Discussion w patient/family: The assessment and plan as outlined above was discussed with the patient and/or family members who expressed understanding and agreement. All questions were answered. Thank you for involving us in the care of your patient. Please call with any questions. Subjective Principal diagnosis: atrial fibrillation Interval history: Ms. Escobar denies events overnight. Continues to have BLE edema. Now rate controlled on IV cardizem and toprol XL. Objective Vital Signs, Last 4 Hours Temp Pulse Resp BP Pulse Ox 04/30/17 07:17 98 F 92 16 93/63 94 General: Conversant, No Apparent Distress HEENT: Atraumatic, Normocephaly, Mucus Membranes Moist Neck: No JVD, Normal carotid pulses Cardiac: Reg Rate and Rhythm, Normal S1 and S2, No Murmur Lungs: Normal Breath Sounds, No Wheeze, Rales, Rhonchi Neuro: Alert and responsive, No focal deficits noted Abdomen: Soft, Non-Tender Skin: No rashes noted on visualized skin Musculoskeletal: No Chest Wall Tenderness Extremities: No Clubbing, No Cyanosis, Normal Pulses, Other (2+ pitting edema in ankles, 1+ pitting edema up to knees. ) Results 04/29/17 03:43 04/30/17 08:40 Lab Results 04/30/17 08:40 Sodium 143 Potassium 3.5 Chloride 103 Carbon Dioxide 33 H BUN 20 Creatinine 0.78 Glucose 105 H Calcium 9.5 - Imaging and Cardiology Echo: report reviewed - EKG Interpretation EKG results cardiology: personally reviewed - VTE Documentation of Mechanical Device: Intermittent pneumatic compression device Consult Discharge Plan - Plan Additional Instructions: pcp requested Referrals: Peyman Noland Jr, MD [Primary Care Provider] -
[2017-04-30] MEDS ORDERED: Warfarin perPT PO PRN (18:00)
[2017-04-30] MEDS ORDERED: *HR* Warfarin 2.5 MG TABLET PO ONE (18:00)
[2017-04-30] MEDS: Latanoprost 2.5 ML BOTTLE BOTH EYES SCH (20:29)
[2017-05-01] MEDS: Acetaminophen 325 MG TABLET PO PRN ×2 (00:12→08:11)
[2017-05-01] MEDS: *HR* Enoxaparin 80 MG/0.8 ML SYRINGE SQ SCH ×2 (05:17→17:12)
[2017-05-01 05:34] LABS: INR 1.1; Prothrombin Time 12.2 Seconds (9.4-12.1)
[2017-05-01 05:48] LABS: BUN/Creatinine Ratio 28 (6-26); Blood Urea Nitrogen 27 mg/dL (7-20); Calcium 9.1 mg/dL (8.6-10.8); Carbon Dioxide 34 mEq/L (19-29); Chloride 101 mEq/L (98-109); Glucose 102 mg/dL (70-99); Osmolality,Calculated 297 (280-300); Potassium 3.7 mEq/L (3.5-4.5); Sodium 141 mEq/L (136-145); eGFR For African Americans > 60 (> 60); eGFR For Non-African Americans 55 (> 60)
[2017-05-01] MEDS: Aspirin Enteric Coated 81 MG Tablet PO SCH (08:11)
[2017-05-01] MEDS: Furosemide 40 MG/4 ML VIAL IVP SCH ×2 (08:16→19:54)
--- NOTE | 2017-05-01 08:23 | Cardiology Progress Note ---
Date of Encounter: 05/01/17 Time of Encounter: 08:30 Assessment and Plan (1) Atrial fibrillation with RVR Current Visit: Yes Status: Acute Per Cardiology: Atrial fibrillation with RVR. Unknown timiing of onset. C/o palpitations for one week. Bilateral atrium enlarged on TTE suggesting longer duration. TTE completed showed EF 65%. Severely enlarged bilateral atrium, mild aortic stenosis, mild aortic regurgitation, and mild tricuspid regurgitation. TSH- 9.234. Hospitalist following. Average heart rate the past 12 hours 120, currently atrial fibrillation in the 110s. Systolic blood pressures in the 100s to 120s. On Toprol XL 100 mg by mouth daily. We'll add Cardizem 30 mg by mouth every 6 hours. Continue to monitor telemetry. She is a CHADS VASc= 4. She was previously on warfarin for DVT. [employer] hubbard check was $95. Patient prefers coumadin due to cost. Now on Coumadin with goal INR 2.0-3.0. INR today 1.1. On Lovenox. [facility] referral sent. Patient discussed with Dr. Lloyd and primary service. (2) Congestive heart failure Current Visit: Yes Status: Acute Per Cardiology: Acute diastolic CHF in the setting of afib with RVR. TTE shows EF 65%. Presents with fluid overload. Continues to have significant BLE edema. CXR shows pulmonary edema. BNP 691. According to records patient is net -10 ml and weight down 3kg. On lasix IV 40 mg BID. Continue strict I&O, daily weights. Will add 1.5L fluid restriction. Will add bilateral knee high BRENDA hose. Qualifiers: Congestive heart failure type: diastolic Congestive heart failure chronicity: acute on chronic Qualified Code(s): I50.33 - Acute on chronic diastolic (congestive) heart failure Discussion w patient/family: The assessment and plan as outlined above was discussed with the patient who expressed understanding and agreement. All questions were answered. Thank you for involving us in the care of your patient. Please call with any questions. Subjective Principal diagnosis: atrial fibrillation, CHF Interval history: Patient denies any chest pain, short of breath, palpitations. Reports continues to have bilateral lower extremity swelling. Reports was hopeful for discharge today. Objective Vital Signs, Last 4 Hours Pulse BP 05/01/17 08:10 107 108/73 Selected Entries 05/01/17 00:20 05/01/17 02:37 05/01/17 08:10 Blood Pressure 123/85 106/73 108/73 General: Conversant, No Apparent Distress HEENT: Atraumatic, Normocephaly, Mucus Membranes Moist Neck: No JVD, Normal carotid pulses Cardiac: No Murmur, Other (Irregularly irregular) Lungs: Normal Breath Sounds, No Wheeze, Rales, Rhonchi Neuro: Alert and responsive, No focal deficits noted Abdomen: Soft, Non-Tender Skin: No rashes noted on visualized skin Musculoskeletal: Other (Seen today up out of bed and chair) Extremities: Other (+2-3 nonpitting edema bilateral LE) Results 04/29/17 03:43 05/01/17 04:59 Lab Results Laboratory Tests 04/28/17 04/28/17 04/28/17 12:23 12:23 12:23 INR Creatinine Est GFR (Non-Af Amer) Troponin I 0.01 B-Natriuretic Peptide 691 H TSH 9.234 H 04/28/17 04/29/17 05/01/17 21:02 03:43 04:59 INR Creatinine 0.96 Est GFR (Non-Af Amer) 55 L Troponin I 0.01 0.02 B-Natriuretic Peptide TSH 05/01/17 04:59 INR 1.1 Creatinine Est GFR (Non-Af Amer) Troponin I B-Natriuretic Peptide TSH ITS Impressions Chest X-Ray 04/28/17 12:19 IMPRESSION: Mild edema with a trace left-sided pleural effusion. Superimposed pneumonia not excluded. D/ / Ave Yepez MD / Ave Yepez MD Interpreting Provider: Ave Yepez MD Echocardiogram 04/28/17 18:48 Impressions: Normal LV systolic function, LVEF 65%. Indeterminate diastolic function due to atrial fibrillation. Mildly dilated right ventricle with normal function. Severely dilated left atrium. Severely dilated right atrium. Mild aortic stenosis. Mild aortic regurgitation. Mild tricuspid regurgitation. No evidence of pulmonary hypertension. Left Ventricular Wall Motion: Rest Echo Findings All wall segments showed normal motion. Findings: Study Quality * Technically adequate study. ECG Findings * Atrial fibrillation. Left Ventricle * Normal LV systolic function, LVEF 65%. * Normal LV chamber size and wall thickness. * Indeterminate diastolic function due to atrial fibrillation. Right Ventricle * Mildly dilated right ventricle with normal function. Left Atrium * Severely dilated left atrium. Right Atrium * Severely dilated right atrium. Aorta * Normally sized aortic root. Pericardium * There is a trivial pericardial effusion present. IVC * The IVC is not well evaluated. Aortic Valve * Trileaflet aortic valve with moderately thickened/calcified leaflets. * Mild aortic stenosis. * Mild aortic regurgitation. Mitral Valve * Mild mitral annular calcification * No mitral stenosis. * Trace mitral regurgitation. Tricuspid Valve * Normal tricuspid valve structure. * No tricuspid stenosis. * Mild tricuspid regurgitation. * No evidence of pulmonary hypertension. Pulmonic Valve * Normal pulmonic valve structure. * No pulmonic stenosis. * Trace pulmonic regurgitation. Intake & Output 04/28/17 04/29/17 04/30/17 05/01/17 23:59 23:59 23:59 23:59 Intake Total 120 / 120 485 / 485 480 / 480 650 / 650 Output Total 150 / 150 475 / 475 900 / 900 200 / 200 Balance -30 / -30 -420 / -420 450 / 450 Weight 71.5 kg 71.5 kg 69.3 kg Active Medications Acetaminophen (Tylenol) 650 mg PO Q6HR PRN PRN Reason: Fever Stop: 10/30/17 23:30 Last Admin: 05/01/17 08:11 Dose: 650 mg Aspirin (Aspirin Ec) 81 mg PO DAILY [facility] Stop: 10/29/17 09:01 Last Admin: 05/01/17 08:11 Dose: 81 mg Enoxaparin Sodium (Lovenox) 70 mg SQ Q12HCO [facility] PRN Reason: Protocol Stop: 10/28/17 15:01 Last Admin: 05/01/17 05:17 Dose: 70 mg Furosemide (Lasix) 40 mg IVP BID [facility] Stop: 10/30/17 21:01 Last Admin: 05/01/17 08:16 Dose: 40 mg Latanoprost (Xalatan) 1 drop BOTH EYES QPM [facility] PRN Reason: Protocol Stop: 10/28/17 18:01 Last Admin: 04/30/17 20:29 Dose: 1 drop Levothyroxine Sodium (Synthroid) 100 mcg PO 0630 [facility] Stop: 04/06/18 06:31 Last Admin: 05/01/17 05:17 Dose: 100 mcg Metoprolol Succinate (Toprol Xl) 100 mg PO DAILY [facility] Stop: 10/31/17 09:01 Last Admin: 05/01/17 08:11 Dose: 100 mg Potassium Chloride (Potassium Chloride) 20 meq PO BID [facility] Stop: 10/29/17 10:16 Last Admin: 05/01/17 08:12 Dose: 20 meq Warfarin Sodium (Coumadin Perpt) 1 each PO DAILY@1800 PRN PRN Reason: SEE COMMENTS Stop: 10/30/17 18:01 - Imaging and Cardiology Echo: report reviewed - EKG Interpretation EKG results cardiology: other (Telemetry reviewed with average heart rate 120 the past 12 hours, currently A. fib in the 110s) - VTE Documentation of Mechanical Device: Intermittent pneumatic compression device Consult Discharge Plan - Plan Additional Instructions: pcp requested Referrals: Peyman Noland Jr, MD [Primary Care Provider] -
[2017-05-01] MEDS ORDERED: Metoprolol XL (24 HR) Succ 50 MG TAB.ER.24H PO SCH ×2 (09:00)
[2017-05-01 17:07] LABS: CK-MB (CK isoenzymes) 0 % (0-4); CK-MM (CK-isoenzymes) 100 % (96-100)
[2017-05-01 17:07] LABS: CK-MB (CK isoenzymes) 0 % (0-4); CK-MM (CK-isoenzymes) 100 % (96-100)
[2017-05-01] MEDS: Latanoprost 2.5 ML BOTTLE BOTH EYES SCH (17:13)
--- NOTE | 2017-05-01 17:59 | Internal Med Progress Note ---
Date of Encounter: 05/01/17 Time of Encounter: 10:00 - Assessment and plan (1) Atrial fibrillation Current Visit: Yes Status: Acute Assessment and plan: Back on cardizem drip. PO started by cardiology. Appreciate input. Qualifiers: Atrial fibrillation type: persistent Qualified Code(s): I48.1 - Persistent atrial fibrillation (2) Hypokalemia Current Visit: Yes Status: Resolved Assessment and plan: resolved (3) HTN (hypertension) Current Visit: Yes Status: Chronic Assessment and plan: stable and controlled. continue home medications Qualifiers: Hypertension type: essential hypertension Qualified Code(s): I10 - Essential (primary) hypertension (4) Hypothyroidism Current Visit: Yes Status: Chronic Assessment and plan: Continue home dose of thyroid replacement. Qualifiers: Hypothyroidism type: acquired Qualified Code(s): E03.9 - Hypothyroidism, unspecified (5) Congestive heart failure Current Visit: Yes Status: Acute Assessment and plan: Continues to have significant edema. Renal function stable. Continue diuresis. Qualifiers: Congestive heart failure type: diastolic Congestive heart failure chronicity: acute on chronic Qualified Code(s): I50.33 - Acute on chronic diastolic (congestive) heart failure - Subjective Interval history: Ms. Lopez is currently admitted for acute exac CHF and rapid a fib. She remains moderate to high risk due to potential for worsening cardiac and resp status. Ms Lopez is back in rapid a fib and on Cardizem drip. She still has a lot of edema. No fever and chills. No cough now. No GI issues. Urinating frequently with Lasix. - Constitutional Vitals: Temp Pulse Resp BP Pulse Ox 99.2 F 113 18 118/72 94 05/01/17 16:00 05/01/17 16:00 05/01/17 16:00 05/01/17 16:00 05/01/17 16:00 General appearance: Present: A&O X 3, pleasant, answers questions appropriately - Head Head exam: Present: normocephalic - Eye Eye exam: Present: EOMI, conjuntiva pink - ENT ENT exam: Present: mucous membranes moist - Respiratory Respiratory exam: Present: rales, rhonchi. Absent: wheezes - Cardiovascular Cardiovascular exam: Present: irregular rhythm, tachycardia - GI/Abdominal GI/Abdominal exam: Present: soft. Absent: tenderness - Extremities Exam Extremities exam: Present: pedal edema, warm - Neurological Exam Neurological exam: Present: alert, oriented X3 - Skin Skin exam: Present: warm. Absent: rash Internal Medicine: Result - Labs CBC & Chem 7: 04/29/17 03:43 05/01/17 04:59 Labs: BMP 05/01/17 04:59 Sodium 141 Potassium 3.7 Chloride 101 Carbon Dioxide 34 H BUN 27 H Creatinine 0.96 Glucose 102 H Calcium 9.1 - ABG Interpretation ABG results: PT/INR, D-dimer PT 12.2 Seconds (9.4-12.1) H 05/01/17 04:59 - Impressions Impressions Chest X-Ray 05/01/17 09:12 IMPRESSION: Slightly increased right pleural effusion with adjacent airspace disease. Stable small left pleural effusion. D/ / Jeremy De La Paz MD / Jeremy De La Paz MD Interpreting Provider: Jeremy De La Paz MD - VTE Documentation of Mechanical Device: Intermittent pneumatic compression device Consult Discharge Plan - Plan Additional Instructions: pcp requested Referrals: Peyman Noland Jr, MD [Primary Care Provider] -
[2017-05-01] MEDS ORDERED: *HR* Warfarin 2.5 MG TABLET PO ONE (18:00)
[2017-05-02] MEDS: *HR* Enoxaparin 80 MG/0.8 ML SYRINGE SQ SCH ×2 (06:16→17:26)
[2017-05-02 07:38] LABS: INR 1.2; Prothrombin Time 13.2 Seconds (9.4-12.1)
--- NOTE | 2017-05-02 07:51 | Cardiology Progress Note ---
Date of Encounter: 05/02/17 Time of Encounter: 07:45 Assessment and Plan (1) Atrial fibrillation with RVR Current Visit: Yes Status: Acute Per Cardiology: Atrial fibrillation with RVR. Unknown timing of onset. C/o palpitations for one week. Bilateral atrium enlarged on TTE suggesting longer duration. TTE completed showed EF 65%. Severely enlarged bilateral atrium, mild aortic stenosis, mild aortic regurgitation, and mild tricuspid regurgitation. TSH- 9.234. Hospitalist following. Average heart rate the past 12 hours 116, currently atrial fibrillation in the 90's - 110's. Systolic blood pressures in the 100s to 120s. On Toprol XL 100 mg PO daily and Cardizem 30 mg by mouth every 6 hours-- will change to Toprol XL 75mg PO BID and Cardizem CD 180mg PO daily. Continue to monitor telemetry and SBP. She is a CHADS VASc= 4. She was previously on warfarin for DVT. [employer] hubbard check was $95. Patient prefers coumadin due to cost. Now on Coumadin with goal INR 2.0-3.0. INR today 1.2. On Lovenox. [facility] referral sent. (2) Congestive heart failure Current Visit: Yes Status: Acute Per Cardiology: Acute diastolic CHF in the setting of afib with RVR. TTE shows EF 65%. BNP 691. According to records patient is net +980 ml, but weight appears down 9kg. On lasix IV 40 mg BID. Continue strict I&O, daily weights, 1.5L fluid restriction, and bilateral knee high BRENDA hose. Qualifiers: Congestive heart failure type: diastolic Congestive heart failure chronicity: acute on chronic Qualified Code(s): I50.33 - Acute on chronic diastolic (congestive) heart failure Discussion w patient/family: The assessment and plan as outlined above was discussed with the patient who expressed understanding and agreement. All questions were answered. Thank you for involving us in the care of your patient. Please call with any questions. Subjective Principal diagnosis: atrial fibrillation, CHF Interval history: Patient denies any CP, SOB, Palps, Reports swelling improved-- complaint about BRENDA hose left on at night. Objective Vital Signs, Last 4 Hours Temp Pulse Resp BP Pulse Ox 05/02/17 04:00 99.2 F 124 20 111/70 93 General: Conversant, No Apparent Distress Cardiac: Reg Rate and Rhythm, Normal S1 and S2, No Murmur Lungs: Normal Breath Sounds, No Wheeze, Rales, Rhonchi, Other (Decreased to R base) Neuro: Alert and responsive, No focal deficits noted Skin: No rashes noted on visualized skin Extremities: Other (+1-2 nonpitting bilateral LE edema) Results 04/29/17 03:43 05/02/17 07:02 Lab Results 05/02/17 07:02 INR 1.2 Impressions Chest X-Ray 05/01/17 09:12 IMPRESSION: Slightly increased right pleural effusion with adjacent airspace disease. Stable small left pleural effusion. D/ / Jeremy De La Paz MD / Jeremy De La Paz MD Interpreting Provider: Jeremy De La Paz MD Intake & Output 04/29/17 04/30/17 05/01/17 05/02/17 23:59 23:59 23:59 23:59 Intake Total 485 / 485 600 / 600 0 / 2050 0 / 0 Output Total 475 / 475 900 / 900 700 / 700 50 / 50 Balance -300 / -300 1350 / 1350 -50 / -50 Weight 71.5 kg 69.3 kg 63.5 kg Active Medications Acetaminophen (Tylenol) 650 mg PO Q6HR PRN PRN Reason: Fever Stop: 10/30/17 23:30 Last Admin: 05/01/17 08:11 Dose: 650 mg Aspirin (Aspirin Ec) 81 mg PO DAILY [facility] Stop: 10/29/17 09:01 Last Admin: 05/01/17 08:11 Dose: 81 mg Diltiazem HCl (Cardizem Cd) 180 mg PO DAILY [facility] Stop: 11/01/17 08:01 Enoxaparin Sodium (Lovenox) 70 mg SQ Q12HCO [facility] PRN Reason: Protocol Stop: 10/28/17 15:01 Last Admin: 05/02/17 06:16 Dose: 70 mg Furosemide (Lasix) 40 mg IVP BID [facility] Stop: 10/30/17 21:01 Last Admin: 05/01/17 19:54 Dose: 40 mg Levofloxacin/Dextrose (Levaquin Premix 750mg/150 Ml) 750 mg in 150 mls @ 100 mls/hr IVPB DAILY [facility] PRN Reason: Protocol Stop: 11/01/17 08:01 Latanoprost (Xalatan) 1 drop BOTH EYES QPM [facility] PRN Reason: Protocol Stop: 10/28/17 18:01 Last Admin: 05/01/17 17:13 Dose: 1 drop Levothyroxine Sodium (Synthroid) 100 mcg PO 0630 [facility] Stop: 10/29/17 06:31 Last Admin: 05/02/17 06:13 Dose: 100 mcg Metoprolol Succinate (Toprol Xl) 75 mg PO BID [facility] Stop: 11/01/17 07:46 Potassium Chloride (Potassium Chloride) 20 meq PO BID [facility] Stop: 10/29/17 10:16 Last Admin: 05/01/17 19:54 Dose: 20 meq Warfarin Sodium (Coumadin Perpt) 1 each PO DAILY@1800 PRN PRN Reason: SEE COMMENTS Stop: 10/30/17 18:01 - Imaging and Cardiology Chest Xray: report reviewed - EKG Interpretation EKG results cardiology: other (Telemetry reviewed with average heart rate the past 12 hours 116, remains atrial fib ablation, currently A. fib in the 90s to 100s) - VTE Documentation of Mechanical Device: Intermittent pneumatic compression device Consult Discharge Plan - Plan Additional Instructions: pcp requested Referrals: Peyman Noland Jr, MD [Primary Care Provider] -
[2017-05-02 08:02] LABS: BUN/Creatinine Ratio 33 (6-26); Blood Urea Nitrogen 26 mg/dL (7-20); Carbon Dioxide 34 mEq/L (19-29); Chloride 101 mEq/L (98-109); Glucose 91 mg/dL (70-99); Osmolality,Calculated 294 (280-300); Potassium 3.2 mEq/L (3.5-4.5); Sodium 140 mEq/L (136-145); eGFR For African Americans > 60 (> 60); eGFR For Non-African Americans > 60 (> 60)
[2017-05-02] MEDS ORDERED: Levofloxacin 750 MG/150 ML 750 MG/150 ML BAG IVPB SCH (09:00)
[2017-05-02] MEDS: Metoprolol XL (24 HR) Succ 50 MG TAB.ER.24H PO SCH ×3 (10:09→20:41)
[2017-05-02] MEDS: Aspirin Enteric Coated 81 MG Tablet PO SCH (10:10)
[2017-05-02] MEDS: Diltiazem CD (24hr) 180 MG CAPSULE PO SCH ×2 (10:11→11:53)
[2017-05-02] MEDS: Furosemide 40 MG/4 ML VIAL IVP SCH (10:12)
[2017-05-02] MEDS ORDERED: Potassium Chloride Elixir 20 MEQ/15 ML UDC PO SCH (10:15)
--- NOTE | 2017-05-02 14:45 | Internal Med Progress Note ---
Date of Encounter: 05/02/17 Time of Encounter: 09:45 - Assessment and plan (1) Atrial fibrillation Current Visit: Yes Status: Acute Assessment and plan: Off drip at this time. PO meds started. Qualifiers: Atrial fibrillation type: persistent Qualified Code(s): I48.1 - Persistent atrial fibrillation (2) Hypokalemia Current Visit: Yes Status: Acute Assessment and plan: Replace today. (3) Pneumonia Current Visit: Yes Status: Suspected Assessment and plan: RLL change on CXR. Probable pneumonia with low grade temp. Levaquin started. Qualifiers: Pneumonia type: due to Pneumococcus Laterality: right Lung location: lower lobe of lung Qualified Code(s): J13 - Pneumonia due to Streptococcus pneumoniae (4) HTN (hypertension) Current Visit: Yes Status: Chronic Assessment and plan: stable and controlled. continue home medications Qualifiers: Hypertension type: essential hypertension Qualified Code(s): I10 - Essential (primary) hypertension (5) Hypothyroidism Current Visit: Yes Status: Chronic Assessment and plan: Continue home dose of thyroid replacement. Qualifiers: Hypothyroidism type: acquired Qualified Code(s): E03.9 - Hypothyroidism, unspecified (6) Congestive heart failure Current Visit: Yes Status: Acute Assessment and plan: Edema somewhat better today. Continue diuresis. Qualifiers: Congestive heart failure type: diastolic Congestive heart failure chronicity: acute on chronic Qualified Code(s): I50.33 - Acute on chronic diastolic (congestive) heart failure - Subjective Interval history: Ms. Lopez is currently admitted for acute exac CHF and rapid a fib. She remains moderate to high risk due to potential for worsening cardiac and resp status. Ms Lopez is off card drip. She is getting PO meds today. Very weak when getting up. Continues to have low grade temp. CXR reports "airspace disease" on R. Started IV abx. Still has not been seen by PT/OT (on card drip). - Constitutional Vitals: Temp Pulse Resp BP Pulse Ox 98.7 F 97 16 107/70 97 05/02/17 11:55 05/02/17 11:55 05/02/17 11:55 05/02/17 11:55 05/02/17 11:55 General appearance: Present: A&O X 3, pleasant, answers questions appropriately - Head Head exam: Present: normocephalic - Eye Eye exam: Present: EOMI, conjuntiva pink - ENT ENT exam: Present: mucous membranes moist - Respiratory Respiratory exam: Present: decreased breath sounds, rales. Absent: rhonchi, wheezes - Cardiovascular Cardiovascular exam: Present: irregular rhythm, tachycardia - GI/Abdominal GI/Abdominal exam: Present: soft. Absent: tenderness - Extremities Exam Extremities exam: Present: pedal edema, warm. Absent: tenderness - Neurological Exam Neurological exam: Present: alert, oriented X3 - Skin Skin exam: Present: warm. Absent: rash Internal Medicine: Result - Labs CBC & Chem 7: 04/29/17 03:43 05/02/17 07:02 Labs: BMP 05/02/17 07:02 Sodium 140 Potassium 3.2 L Chloride 101 Carbon Dioxide 34 H BUN 26 H Creatinine 0.79 Glucose 91 Calcium 9.0 - ABG Interpretation ABG results: PT/INR, D-dimer PT 13.2 Seconds (9.4-12.1) H 05/02/17 07:02 - VTE Documentation of Mechanical Device: Intermittent pneumatic compression device Consult Discharge Plan - Plan Additional Instructions: pcp requested Referrals: Peyman Noland Jr, MD [Primary Care Provider] -
[2017-05-02] MEDS: Furosemide 40 MG TABLET PO SCH (16:41)
[2017-05-02] MEDS ORDERED: *HR* Warfarin 2.5 MG TABLET PO ONE (18:00)
[2017-05-02] MEDS: Latanoprost 2.5 ML BOTTLE BOTH EYES SCH (20:42)
[2017-05-03 03:42] LABS: INR 1.3
[2017-05-03 03:56] LABS: Calcium 9.1 mg/dL (8.6-10.8); Potassium 3.8 mEq/L (3.5-4.5)
[2017-05-03] MEDS: *HR* Enoxaparin 80 MG/0.8 ML SYRINGE SQ SCH (05:13)
[2017-05-03 07:57] LABS: CK Total (Ck Isoenzymes) 46 U/L (20-180); CK-BB (CK isoenzymes) 0 % (0-0)
[2017-05-03 08:12] LABS: CK Total (Ck Isoenzymes) 32 U/L (20-180); CK-BB (CK isoenzymes) 0 % (0-0)
[2017-05-03] MEDS: Furosemide 40 MG TABLET PO SCH (08:14)
[2017-05-03] MEDS: Aspirin Enteric Coated 81 MG Tablet PO SCH (08:15)
[2017-05-03] MEDS: Metoprolol XL (24 HR) Succ 50 MG TAB.ER.24H PO SCH (08:59)
--- NOTE | 2017-05-03 09:23 | Cardiology Progress Note ---
Date of Encounter: 05/03/17 Time of Encounter: 09:20 Assessment and Plan (1) Atrial fibrillation with RVR Current Visit: Yes Status: Acute Per Cardiology: Atrial fibrillation with RVR. Unknown timing of onset. C/o palpitations for one week. Bilateral atrium enlarged on TTE suggesting longer duration. TTE completed showed EF 65%. Severely enlarged bilateral atrium, mild aortic stenosis, mild aortic regurgitation, and mild tricuspid regurgitation. TSH- 9.234. Hospitalist following. Average heart rate the past 12 hours 111, currently atrial fibrillation in the 90's - 110's. Systolic blood pressures in the 100s to 120s. On Toprol XL 75mg PO BID and Cardizem CD 180mg PO daily. Current HR 90;s, SBP 100's. Discussed with primary service, will s/o, re- consult PRN, f/u scheduled. Pending DC today. She is a CHADS VASc= 4. She was previously on warfarin for DVT. Revision [employer] check was $95. Patient prefers coumadin due to cost. Now on Coumadin with goal INR 2.0-3.0. INR today 1.3. On Lovenox. [facility] referral sent. (2) Congestive heart failure Current Visit: Yes Status: Acute Per Cardiology: Acute diastolic CHF in the setting of afib with RVR. TTE shows EF 65%. BNP 691. According to records patient is net +40 ml. On lasix IV 40 mg BID. Continue strict I&O, daily weights, 1.5L fluid restriction, and bilateral knee high BRENDA hose. Qualifiers: Congestive heart failure type: diastolic Congestive heart failure chronicity: acute on chronic Qualified Code(s): I50.33 - Acute on chronic diastolic (congestive) heart failure Discussion w patient/family: The assessment and plan as outlined above was discussed with the patient who expressed understanding and agreement. All questions were answered. Thank you for involving us in the care of your patient. Please call with any questions. Subjective Principal diagnosis: atrial fibrillation, CHF Interval history: Patient denies any CP, SOB, Palps. Reports swelling improved. reports wanting to go home and does not feel she needs rehab. Objective Vital Signs, Last 4 Hours Temp Pulse Resp BP Pulse Ox 05/03/17 07:44 98.9 F 114 18 103/59 93 General: Conversant, No Apparent Distress Cardiac: No Murmur, Other (irregularly irregular) Lungs: Normal Breath Sounds, No Wheeze, Rales, Rhonchi, Other (slightly decreased to bases) Neuro: Alert and responsive, No focal deficits noted Abdomen: Soft, Non-Tender Extremities: Other (+1-2 nonpitting edema) Results 04/29/17 03:43 05/03/17 03:20 Lab Results Laboratory Tests 05/02/17 05/03/17 05/03/17 07:02 03:20 03:20 INR 1.2 1.3 Creatinine 1.07 Est GFR (Non-Af Amer) 49 L Intake & Output 04/30/17 05/01/17 05/02/17 05/03/17 23:59 23:59 23:59 23:59 Intake Total 600 / 600 2050 / 2050 460 / 460 0 / 0 Output Total 900 / 900 700 / 700 1400 / 1400 50 / 50 Balance -300 / -300 1350 / 1350 -940 / -940 -50 / -50 Weight 69.3 kg 63.5 kg 68.3 kg Active Medications Acetaminophen (Tylenol) 650 mg PO Q6HR PRN PRN Reason: Fever Stop: 10/30/17 23:30 Last Admin: 05/01/17 08:11 Dose: 650 mg Aspirin (Aspirin Ec) 81 mg PO DAILY [facility] Stop: 10/29/17 09:01 Last Admin: 05/03/17 08:15 Dose: 81 mg Diltiazem HCl (Cardizem Cd) 180 mg PO DAILY [facility] Stop: 11/01/17 08:01 Last Admin: 05/02/17 11:53 Dose: 180 mg Enoxaparin Sodium (Lovenox) 70 mg SQ Q12HCO [facility] PRN Reason: Protocol Stop: 10/28/17 15:01 Last Admin: 05/03/17 05:13 Dose: 70 mg Furosemide (Lasix) 40 mg PO BIDDIURETIC [facility] Stop: 11/01/17 17:01 Last Admin: 05/03/17 08:14 Dose: 40 mg Levofloxacin/Dextrose (Levaquin Premix 750mg/150 Ml) 750 mg in 150 mls @ 100 mls/hr IVPB Q48H [facility] PRN Reason: Protocol Stop: 11/01/17 09:01 Last Admin: 05/02/17 10:25 Dose: 100 mls/hr Latanoprost (Xalatan) 1 drop BOTH EYES QPM [facility] PRN Reason: Protocol Stop: 10/28/17 18:01 Last Admin: 05/02/17 20:42 Dose: 1 drop Levothyroxine Sodium (Synthroid) 100 mcg PO 0630 [facility] Stop: 10/29/17 06:31 Last Admin: 05/03/17 05:14 Dose: 100 mcg Metoprolol Succinate (Toprol Xl) 75 mg PO BID [facility] Stop: 11/01/17 07:46 Last Admin: 05/03/17 08:59 Dose: 75 mg Potassium Chloride (Potassium Chloride) 40 meq PO BID [facility] Stop: 11/01/17 21:01 Last Admin: 05/03/17 08:58 Dose: 40 meq Warfarin Sodium (Coumadin Perpt) 1 each PO DAILY@1800 PRN PRN Reason: SEE COMMENTS Stop: 10/30/17 18:01 - EKG Interpretation EKG results cardiology: other (Tele shows avg HR 111 past 12 hrs, remains afib, currently afib 90's - 110's) - VTE Documentation of Mechanical Device: Intermittent pneumatic compression device Consult Discharge Plan - Plan Additional Instructions: pcp requested Referrals: Peyman Noland Jr, MD [Primary Care Provider] - 05/07/17 2:30 pm
[2017-05-03] MEDS: Diltiazem CD (24hr) 180 MG CAPSULE PO SCH (09:49)
--- NOTE | 2017-05-03 11:09 | Internal Med Progress Note ---
<Mary Jo Jones - Last Filed: 05/03/17 11:07> Date of Encounter: 05/03/17 Time of Encounter: 11:07 - Assessment and plan (1) Atrial fibrillation with RVR Current Visit: Yes Status: Acute Assessment and plan: new onset a fib with RVR during annual check-up at her PCP. Cardiology consulted, appreciate recommendations Echo shows normal systolic function, EF 65%, indeterminate diastolic function due to a fib, mildly dilated right ventricle with normal function, severely dilated atria, mild aortic stenosis, mild aortic regurgitation, mild tricuspid regurgitation Lovenox due to CHADSVASc score 4 Lasix 40 mg IV BID and BRENDA hose for pedal edema Still with significant pedal edema. Cardizem 180 mg daily, metoprolol 75 mg daily. Patient planning to discharge with coumadin for anticoagulation. (2) Pneumonia Current Visit: Yes Status: Suspected Assessment and plan: probable Levaquin renally dose (q48 hr) Qualifiers: Pneumonia type: due to Pneumococcus Laterality: right Lung location: lower lobe of lung Qualified Code(s): J13 - Pneumonia due to Streptococcus pneumoniae (3) Congestive heart failure Current Visit: Yes Status: Acute Assessment and plan: Edema somewhat better today. Continue diuresis. Qualifiers: Congestive heart failure type: diastolic Congestive heart failure chronicity: acute on chronic Qualified Code(s): I50.33 - Acute on chronic diastolic (congestive) heart failure (4) Hypothyroidism Current Visit: Yes Status: Chronic Assessment and plan: Continue home dose of thyroid replacement. Qualifiers: Hypothyroidism type: acquired Qualified Code(s): E03.9 - Hypothyroidism, unspecified (5) HTN (hypertension) Current Visit: Yes Status: Chronic Assessment and plan: stable and controlled. continue home medications Qualifiers: Hypertension type: essential hypertension Qualified Code(s): I10 - Essential (primary) hypertension (6) Hypokalemia Current Visit: Yes Status: Acute Assessment and plan: potassium 3.8 this AM continue to supplement potassium while receiving lasix continue to monitor - Subjective Interval history: Patient without complaints this morning, no shortness of breath. States her pedal edema is slightly improved from yesterday. - Constitutional Vitals: Temp Pulse Resp BP Pulse Ox 98.9 F 114 18 108/64 93 05/03/17 07:44 05/03/17 07:44 05/03/17 07:44 05/03/17 08:42 05/03/17 07:44 General appearance: Present: A&O X 3, pleasant, answers questions appropriately - Head Head exam: Present: atraumatic, normocephalic - Eye Eye exam: Present: PERRL, conjuntiva pink, sclera anicteric Pupils: Present: PERRL - Neck Neck exam general surgery: Present: supple, trachea midline - Respiratory Respiratory exam: Present: decreased breath sounds, rales. Absent: respiratory distress, wheezes - Cardiovascular Cardiovascular exam: Present: irregular rhythm, +S1, +S2, tachycardia - GI/Abdominal GI/Abdominal exam: Present: normal bowel sounds, soft, no peritoneal signs. Absent: distended, tenderness - Extremities Exam Extremities exam: Present: pedal edema (2+), warm. Absent: tenderness - Neurological Exam Neurological exam: Present: CN II-XII intact, oriented X3, no focal deficits. Absent: pronater drift, facial droop, speech deficit - Skin Skin exam: Present: dry, intact, warm Internal Medicine: Result - Labs CBC & Chem 7: 04/29/17 03:43 05/03/17 03:20 Labs: BMP 05/03/17 03:20 Sodium 139 Potassium 3.8 Chloride 101 Carbon Dioxide 30 H BUN 30 H Creatinine 1.07 Glucose 94 Calcium 9.1 Cardiac Enzymes 04/28/17 04/29/17 Range/Units 21:02 03:43 CK-MB (CK-2) 0 0 (0-4) % - ABG Interpretation ABG results: PT/INR, D-dimer PT 14.0 Seconds (9.4-12.1) H 05/03/17 03:20 - VTE Documentation of Mechanical Device: Intermittent pneumatic compression device Consult Discharge Plan - Plan Instructions: Metoprolol (By mouth), Diltiazem (By mouth), Furosemide (By mouth ), Potassium Chloride (By mouth), Warfarin (By mouth), Levofloxacin (By mouth), Heart Failure (DC), Atrial Fibrillation (DC) Additional Instructions: As tolerated. Please use walker or cane when ambulating. Please be careful not to fall since you are on Coumadin now. Please follow up with [facility] to draw your labs for your coumadin and adjust your coumadin. Referrals: Peyman Noland Jr, MD [Primary Care Provider] - 05/07/17 2:30 pm Prescriptions: Diltiazem CD (24hr) [Cardizem CD] 180 mg PO DAILY #30 cap.er.24h Furosemide [Lasix] 20 mg PO BID #60 tablet Levofloxacin [Levaquin] 750 mg PO Q48H #1 tablet Metoprolol XL (24 HR) Succ [Toprol Xl] 75 mg PO BID #90 tab.er.24h Potassium Chloride 20 meq PO BID #60 tab.er.prt Warfarin [Coumadin] 2.5 mg PO 1800 #30 tablet <Imer Erickson A - Last Filed: 05/03/17 14:03> Date of Encounter: 05/03/17 - Assessment and plan (1) Congestive heart failure Current Visit: Yes Status: Acute Qualifiers: Congestive heart failure type: diastolic Congestive heart failure chronicity: acute on chronic Qualified Code(s): I50.33 - Acute on chronic diastolic (congestive) heart failure (2) Atrial fibrillation Current Visit: Yes Status: Acute Qualifiers: Atrial fibrillation type: persistent Qualified Code(s): I48.1 - Persistent atrial fibrillation (3) Hypokalemia Current Visit: Yes Status: Acute (4) Pneumonia Current Visit: Yes Status: Suspected Qualifiers: Pneumonia type: due to Pneumococcus Laterality: right Lung location: lower lobe of lung Qualified Code(s): J13 - Pneumonia due to Streptococcus pneumoniae (5) HTN (hypertension) Current Visit: Yes Status: Chronic Qualifiers: Hypertension type: essential hypertension Qualified Code(s): I10 - Essential (primary) hypertension (6) Hypothyroidism Current Visit: Yes Status: Chronic Qualifiers: Hypothyroidism type: acquired Qualified Code(s): E03.9 - Hypothyroidism, unspecified - Constitutional Vitals: Temp Pulse Resp BP Pulse Ox 99.5 F 101 17 113/68 96 05/03/17 11:52 05/03/17 11:52 05/03/17 11:52 05/03/17 11:52 05/03/17 11:52 Internal Medicine: Result - Labs CBC & Chem 7: 04/29/17 03:43 05/03/17 03:20 Labs: BMP 05/03/17 03:20 Sodium 139 Potassium 3.8 Chloride 101 Carbon Dioxide 30 H BUN 30 H Creatinine 1.07 Glucose 94 Calcium 9.1 Cardiac Enzymes 04/28/17 04/29/17 Range/Units 21:02 03:43 CK-MB (CK-2) 0 0 (0-4) % - ABG Interpretation ABG results: PT/INR, D-dimer PT 14.0 Seconds (9.4-12.1) H 05/03/17 03:20 - Attending Attestation I examined this patient and my medical decision-making was reviewed with the Resident Physician on 05/03/17. I agree with the documented findings, disposition and treatment plan as described except to the extent set forth below. Please see discharge summary of this date.
[2017-05-03 12:10] VITALS: BP 113/68
--- NOTE | 2017-05-03 12:51 | Discharge Summary ---
Date of Encounter: 05/03/17 Time of Encounter: 10:30 - Discharge Diagnosis (1) Congestive heart failure Priority: Primary Status: Acute Qualifiers: Congestive heart failure type: diastolic Congestive heart failure chronicity: acute on chronic Qualified Code(s): I50.33 - Acute on chronic diastolic (congestive) heart failure (2) Atrial fibrillation Priority: Primary Status: Acute Qualifiers: Atrial fibrillation type: persistent Qualified Code(s): I48.1 - Persistent atrial fibrillation (3) Hypokalemia Priority: Secondary Status: Acute (4) Pneumonia Priority: Secondary Status: Suspected Qualifiers: Pneumonia type: due to Pneumococcus Laterality: right Lung location: lower lobe of lung Qualified Code(s): J13 - Pneumonia due to Streptococcus pneumoniae (5) HTN (hypertension) Priority: Secondary Status: Chronic Qualifiers: Hypertension type: essential hypertension Qualified Code(s): I10 - Essential (primary) hypertension (6) Hypothyroidism Priority: Secondary Status: Chronic Qualifiers: Hypothyroidism type: acquired Qualified Code(s): E03.9 - Hypothyroidism, unspecified - Discharge Medications Prescriptions: Diltiazem CD (24hr) [Cardizem CD] 180 mg PO DAILY #30 cap.er.24h Furosemide [Lasix] 20 mg PO BID #60 tablet Levofloxacin [Levaquin] 750 mg PO Q48H #1 tablet Metoprolol XL (24 HR) Succ [Toprol Xl] 75 mg PO BID #90 tab.er.24h Potassium Chloride 20 meq PO BID #60 tab.er.prt Warfarin [Coumadin] 2.5 mg PO 1800 #30 tablet Home Medications: Aspirin [Lo-Dose Aspirin EC] 81 mg PO DAILY 04/28/17 [History] Latanoprost [Xalatan] 1 drop OP QPM 04/28/17 [History] Levothyroxine [Synthroid] 100 mcg PO QAM 04/28/17 [History] Diltiazem CD (24hr) [Cardizem CD] 180 mg PO DAILY #30 cap.er.24h 05/03/17 [Rx] Furosemide [Lasix] 20 mg PO BID #60 tablet 05/03/17 [Rx] Levofloxacin [Levaquin] 750 mg PO Q48H #1 tablet 05/03/17 [Rx] Metoprolol XL (24 HR) Succ [Toprol Xl] 75 mg PO BID #90 tab.er.24h 05/03/17 [Rx] Potassium Chloride 20 meq PO BID #60 tab.er.prt 05/03/17 [Rx] Warfarin [Coumadin] 2.5 mg PO 1800 #30 tablet 05/03/17 [Rx] Allergies/Adverse Reactions: 3 Allergy/AdvReac Type Severity Reaction Status Date / Time No Known Allergies Allergy Verified 04/28/17 12:18 Date of admission: 04/28/17 14:31 Primary care physician: Peyman Noland Jr, MD Consults: 05/03/17 11:37 Consult to Records Manager [CONS] Routine Reason for SW Consult: PT/OT recommending SNF Discharging clinician: Imer Erickson Anticipated date of discharge: 05/03/17 - Patient Status Disposition: Home Health Service Condition: Good Functional capacity at discharge: uses cane/walker Overall status at discharge: patient is progressing back to baseline - Discharge Instructions Instructions: Metoprolol (By mouth), Diltiazem (By mouth), Furosemide (By mouth ), Potassium Chloride (By mouth), Warfarin (By mouth), Levofloxacin (By mouth), Heart Failure (DC), Atrial Fibrillation (DC) Follow Up With: Peyman Noland Jr, MD [Primary Care Provider] - 05/07/17 2:30 pm Forms: ED Satisfaction Letter Additional Instructions: As tolerated. Please use walker or cane when ambulating. Please be careful not to fall since you are on Coumadin now. Please follow up with [facility] to draw your labs for your coumadin and adjust your coumadin. - Diet and Activity Activity: ambulate only with your walker Diet: low fat, low cholesterol, low salt diet Hospital course: Ms. Lopez is a 86 year old female with history of CHF and HTN sent to ED from PCP office due to lower extremity swelling. Symptoms had been progressive over the prior week. She also was noted to have GALINDO and orthopnea. She was also found to be in a fib with RVR. She was evaluated and subsequently admitted. Ms Lopez was admitted to [facility]. She was started on Cardizem drip for her a fib and Lasix for her exac CHF. She was also started on Lovenox for anticoagulation. She was evaluated by cardiology and diuresis was continued. Her heart rate was difficult to control and her medications were adjusted and titrated. She elected to take coumadin and was started on PO med here. She had difficulty with movement and was evaluated by PT/OT. SNF was recommended and she refused at this time. She agrees to home health. She did have issues with low grade temperature over the weekend. CXR showed possible pneumonia and she was started on Levaquin with improvement. Today she is afebrile. She is ready for discharge home. - Time Spent with Patient Total time spent providing and/or coordinating discharge services: 42min - Constitutional Vitals: Temp Pulse Resp BP Pulse Ox 99.5 F 101 17 113/68 96 05/03/17 11:52 05/03/17 11:52 05/03/17 11:52 05/03/17 11:52 05/03/17 11:52 General appearance: Present: A&O X 3, pleasant, answers questions appropriately - Head Head exam: Present: normocephalic - Eye Eye exam: Present: EOMI, conjuntiva pink - ENT ENT exam: Present: mucous membranes dry - Respiratory Respiratory exam: Present: decreased breath sounds. Absent: rales, rhonchi, wheezes - Cardiovascular Cardiovascular exam: Present: irregular rhythm - GI/Abdominal GI/Abdominal exam: Present: soft. Absent: tenderness - Extremities Exam Extremities exam: Present: pedal edema, warm. Absent: tenderness - Neurological Exam Neurological exam: Present: alert, oriented X3, no focal deficits - Skin Skin exam: Present: warm. Absent: rash - VTE Documentation of Mechanical Device: Intermittent pneumatic compression device
--- NOTE | 2017-05-03 13:55 | Physician Discharge Referral ---
Home Health/Hosp Referral Info Transfer to: Home Health Provider in Charge Post Discharge: PCP - Diagnosis (1) Congestive heart failure Priority: Primary Status: Acute (2) Atrial fibrillation Priority: Primary Status: Acute (3) Hypokalemia Priority: Secondary Status: Acute (4) Pneumonia Priority: Secondary Status: Suspected (5) HTN (hypertension) Priority: Secondary Status: Chronic (6) Hypothyroidism Priority: Secondary Status: Chronic - Respiratory Orders Smoking Cessation: Smoking cessation has been advised. For more information, call the [employer] [place] [employer] Quit Line at 0-065-KQCH-NOW. - Diet/Nutrition Diet/Nutrition Orders: Cardiac - Activity Activity Orders: Walker - Services Needed Following services are medically necessary services: Nursing, Physical Therapy, Occupational Therapy - Transfer Medications Prescriptions: Diltiazem CD (24hr) [Cardizem CD] 180 mg PO DAILY #30 cap.er.24h Furosemide [Lasix] 20 mg PO BID #60 tablet Levofloxacin [Levaquin] 750 mg PO Q48H #1 tablet Metoprolol XL (24 HR) Succ [Toprol Xl] 75 mg PO BID #90 tab.er.24h Potassium Chloride 20 meq PO BID #60 tab.er.prt Warfarin [Coumadin] 2.5 mg PO 1800 #30 tablet Home Medications: Aspirin [Lo-Dose Aspirin EC] 81 mg PO DAILY 04/28/17 [History] Latanoprost [Xalatan] 1 drop OP QPM 04/28/17 [History] Levothyroxine [Synthroid] 100 mcg PO QAM 04/28/17 [History] Diltiazem CD (24hr) [Cardizem CD] 180 mg PO DAILY #30 cap.er.24h 05/03/17 [Rx] Furosemide [Lasix] 20 mg PO BID #60 tablet 05/03/17 [Rx] Levofloxacin [Levaquin] 750 mg PO Q48H #1 tablet 05/03/17 [Rx] Metoprolol XL (24 HR) Succ [Toprol Xl] 75 mg PO BID #90 tab.er.24h 05/03/17 [Rx] Potassium Chloride 20 meq PO BID #60 tab.er.prt 05/03/17 [Rx] Warfarin [Coumadin] 2.5 mg PO 1800 #30 tablet 05/03/17 [Rx] Allergies/Adverse Reactions: 3 Allergy/AdvReac Type Severity Reaction Status Date / Time No Known Allergies Allergy Verified 04/28/17 12:18 Certification: Further, I certify that my clinical findings support that this patient is homebound (i.e. absences from home require considerable and taxing effort and are for medical reasons or jewish services or infrequently or short duration when for other reasons) because: Homebound Reason: Patient requires assistance of a person or device to safely leave home, Leaving home requires considerable and taxing effort due to condition, Severity of cardiac or pulmonary status limits activity tolerance Attestation: My signature below is to certify that this patient is under my care and that I, or nurse practitioner, or a physician's recreational assistant working with me, has a face-to -face encounter with this patient.
[2017-05-03] MEDS ORDERED: FLUARIX QUAD 2017-18 36MOS UP/PF 0.5 ML SYRINGE IM ONE (14:24)
[2017-05-03] MEDS ORDERED: *HR* Warfarin 2.5 MG TABLET PO ONE (14:45)
== END 2017-05-03 16:30 | disposition home health service (06) | DRG 308 ==
LOC: 2NENU 12:13 → EMEROO 12:13 → 2NENU 13:59
PROVIDERS: ADMIT Hospitalist; ATTEND Internal Medicine

== ENCOUNTER 2017-08-24 14:37 | Inpatient (IN) ==
[2017-08-24] MEDS ORDERED: Aspirin 325 MG TABLET PO ONE (15:21)
--- NOTE | 2017-08-24 15:25 | Emergency Department Note ---
Disposition Clinical Impression: Atrial fibrillation with RVR Hypothyroidism Qualifiers: Hypothyroidism type: unspecified Qualified Code(s): E03.9 - Hypothyroidism, unspecified Disposition: Admitted As Inpatient Referrals: Peyman Noland Jr, MD [Primary Care Provider] - Forms: ED Satisfaction Letter General Adult HPI - General Chief complaint: ED Arrhythmia/Palpitations Stated complaint: A-fib RVR Time Seen by Provider: 08/24/17 15:11 Source: patient, family Mode of arrival: ambulatory Limitations: no limitations Nursing Notes Reviewed: Yes Vital Signs Reviewed: Yes - History of Present Illness HPI Narrative: Patient is an 87-year-old white female who presents to the emergency department brought by her daughter today from her heel sorter's office for a rapid heart rate. Patient is asymptomatic and resting comfortably at bedside on initial assessment. Patient states she does not feel her heart racing she denies any chest pain pressure or heaviness she was in for routine check with her heel sorter today he was not to her heart and recommended she come over to the emergency department because her rate was elevated. Patient states she has been taking her medications as directed daughter is at bedside verifies that she did take her daily Cardizem this morning as well as all of her scheduled medications. Patient denies any recent illness of nausea vomiting or difficulty tolerating by mouth which may cause the problem. Patient also complaining of some bilateral lower extremity edema. Patient actually had her legs wrapped in Esdras wraps which she does routinely at home to help with the swelling. Patient denies any recent upper respiratory symptoms cold, fever no other associated symptoms. Pain Scale: 0 - Related Data Home Medications Medication Instructions Recorded Confirmed Aspirin [Lo-Dose Aspirin EC] 81 mg PO DAILY 04/28/17 04/28/17 Latanoprost [Xalatan] 1 drop OP QPM 04/28/17 04/28/17 Levothyroxine [Synthroid] 100 mcg PO QAM 04/28/17 04/28/17 Previous Rx's Medication Instructions Recorded Diltiazem CD (24hr) [Cardizem CD] 180 mg PO DAILY #30 cap.er.24h 05/03/17 Furosemide [Lasix] 20 mg PO BID #60 tablet 05/03/17 Levofloxacin [Levaquin] 750 mg PO Q48H #1 tablet 05/03/17 Metoprolol XL (24 HR) Succ [Toprol 75 mg PO BID #90 tab.er.24h 05/03/17 Xl] Potassium Chloride 20 meq PO BID #60 tab.er.prt 05/03/17 Warfarin [Coumadin] 2.5 mg PO 1800 #30 tablet 05/03/17 Oxycodone HCl 5 mg PO Q6HR PRN #20 tablet 07/07/17 Allergies Allergy/AdvReac Type Severity Reaction Status Date / Time No Known Allergies Allergy Verified 04/28/17 12:18 All systems ED: reviewed and negative except as stated. Review of Systems: As Per HPI Past Medical History - Past Medical History Medical history: Reports: atrial fibrillation, hyperlipidemia, hypertension, osteoporosis, thyroid disease, other Psychiatric history: Reports: no psych history - Social History Smoking Status: Never smoker Smokeless Tobacco Status: No Alcohol use: Reports: none Drug use: Reports: none Physical Exam - General Limitations: no limitations General appearance: alert, in no apparent distress - Head Head exam: atraumatic, normocephalic - Eye Eye exam: Present: normal appearance, PERRL, EOMI - ENT ENT exam: normal exam, normal oropharynx, mucous membranes moist - Neck Neck exam: Present: normal inspection, full ROM - Chest Chest inspection: Present: normal inspection, symmetric chest wall rise - Respiratory Respiratory exam: Present: normal lung sounds bilaterally. Absent: respiratory distress, wheezes - Cardiovascular Cardiovascular exam: Present: tachycardia, irregular rhythm - Abdominal Exam Abdominal exam: Present: soft, Non-Tender, normal bowel sounds - Extremities Exam Extremities exam: Present: pedal edema. Absent: tenderness, joint swelling, calf tenderness - Back Exam Back exam: Present: normal inspection - Neurological Exam Neurological exam: Present: alert, oriented X3, CN II-XII intact, reflexes normal. Absent: motor sensory deficit - Psychiatric Psychiatric exam: Present: normal affect, normal mood - Skin Skin exam: Present: warm, dry, intact, normal color. Absent: rash, diaphoresis , erythema Course Course Narrative: Patient is an 87-year-old white female with a history of atrial fibrillation on Cardizem and Coumadin at home. Patient was brought by her daughter from the heel sorter office for elevated heart rate. Patient was last hospitalized in the fall of last year for similar symptoms and due to increased heart rate and was hospitalized for about 5 days at that time. Patient has had no hospitalizations since that time. Patient is in no acute distress we will initiate aspirin and Cardizem here for rate control obtain lab evaluation and chest x-ray. - Reevaluation(s) Reevaluation #1: Patient continues to be resting comfortably in no acute distress at bedside daughter at bedside. Patient has responded nicely to Cardizem drip and bolus with normal rate but remains in atrial fibrillation at this time. Patient's pressure dropped to 96 systolic site did administer a small fluid bolus of 500 mL. Patient's chest x-ray is unremarkable, labs are all within normal limits including a normal troponin but patient does have a slight elevation in her TSH. Patient is anticoagulated on Coumadin currently and has been taking as directed. Discussed the case with the hospitalist who accepted the patient for admission for further evaluation and management. Discussed 1650. Time: 16:52 Vital Signs Temperature 98.2 F 08/24/17 14:49 Pulse Rate 131 08/24/17 14:49 Respiratory Rate 18 08/24/17 14:49 Blood Pressure 114/71 08/24/17 14:49 O2 Sat by Pulse Oximetry 96 08/24/17 14:49 Temperature 98.2 F 08/24/17 14:49 Pulse Rate 111 08/24/17 16:16 Respiratory Rate 16 08/24/17 16:16 Blood Pressure 94/70 08/24/17 16:16 O2 Sat by Pulse Oximetry 96 08/24/17 16:16 Oxygen Delivery Oxygen Delivery Room Air Medical Decision Making - Medical Records Medical records reviewed: Yes I reviewed the patient's medical records. - Lab Data Lab results reviewed: Yes I reviewed the patient's lab results. Result diagrams: 08/24/17 15:20 08/24/17 15:20 Lab Results 08/24/17 08/24/17 08/24/17 Range/Units 15:20 15:20 15:20 WBC 4.1 L (4.3-11.1) K/mcL RBC 4.53 (3.82-4.97) M/mcL Hgb 13.8 (11.5-15.4) g/dL Hct 43.1 (35.3-44.9) % MCV 95.1 (83.0-100.0) fL MCH 30.5 (28.0-33.3) pg MCHC 32.0 (31.6-35.5) g/dL RDW 15.2 H (11.5-14.5) % Plt Count 208 (140-400) K/mcL MPV 9.4 (9.4-12.4) fL Immature Gran % 0.2 (0-4) % Seg Neutrophils % 63.9 % Lymphocytes % 26.9 % Monocytes % 6.8 % Eosinophils % 1.7 % Basophils % 0.5 % Neutrophils # 2.6 (1.6-8.9) K/mcL Lymphocytes # 1.1 (0.6-4.6) K/mcL Monocytes # 0.3 (0.0-1.3) K/mcL Eosinophils # 0.1 (0.0-0.6) K/mcL Basophils # 0.0 (0.0-0.2) K/mcL PT (9.4-12.1) Seconds INR APTT (26.0-36.0) Seconds Sodium 142 (136-145) mEq/L Potassium 3.5 (3.5-5.1) mEq/L Chloride 103 (98-107) mEq/L Carbon Dioxide 33 H (23-29) mEq/L BUN 19 (8-23) mg/dL Creatinine 0.82 (0.60-1.20) mg/dL Est GFR ( Amer) > 60 (> 60) Est GFR (Non-Af Amer) > 60 (> 60) BUN/Creatinine Ratio 23 (6-26) Glucose 114 H (70-105) mg/dL Calculated Osmolality 297 (280-300) Calcium 9.7 (8.6-10.3) mg/dL Magnesium 2.0 (1.6-2.6) mg/dL Troponin I < 0.03 (< 0.04) ng/mL B-Natriuretic Peptide (Less than 100) pg/mL TSH 6.467 H (0.340-5.600) mcIU/mL Urine Color (Yellow) Urine Clarity (Clear) Urine pH (5.0-8.0) pH Units Ur Specific [place] (1.010-1.025) Urine Protein (Neg-Trace) mg/dL Urine Glucose (UA) (Normal) mg/dL Urine Ketones (Negative) mg/dL Urine Blood (Negative) Urine Nitrite (Negative) Urine Bilirubin (Negative) Urine Urobilinogen (Normal) mg/dL Ur Leukocyte Esterase (Negative) Urine Microscopic RBC (0-3) per hpf Urine Microscopic WBC (0-3) per hpf Ur Squamous Epith Cells (None-Few) per lpf Urine Bacteria (None-Few) per hpf Hyaline Casts (None-Few) per lpf Ur Culture Indicated? (NO) 08/24/17 08/24/17 08/24/17 Range/Units 15:20 15:20 15:36 WBC (4.3-11.1) K/mcL RBC (3.82-4.97) M/mcL Hgb (11.5-15.4) g/dL Hct (35.3-44.9) % MCV (83.0-100.0) fL MCH (28.0-33.3) pg MCHC (31.6-35.5) g/dL RDW (11.5-14.5) % Plt Count (140-400) K/mcL MPV (9.4-12.4) fL Immature Gran % (0-4) % Seg Neutrophils % % Lymphocytes % % Monocytes % % Eosinophils % % Basophils % % Neutrophils # (1.6-8.9) K/mcL Lymphocytes # (0.6-4.6) K/mcL Monocytes # (0.0-1.3) K/mcL Eosinophils # (0.0-0.6) K/mcL Basophils # (0.0-0.2) K/mcL PT 17.2 H (9.4-12.1) Seconds INR 1.6 APTT 35.8 (26.0-36.0) Seconds Sodium (136-145) mEq/L Potassium (3.5-5.1) mEq/L Chloride (98-107) mEq/L Carbon Dioxide (23-29) mEq/L BUN (8-23) mg/dL Creatinine (0.60-1.20) mg/dL Est GFR ( Amer) (> 60) Est GFR (Non-Af Amer) (> 60) BUN/Creatinine Ratio (6-26) Glucose (70-105) mg/dL Calculated Osmolality (280-300) Calcium (8.6-10.3) mg/dL Magnesium (1.6-2.6) mg/dL Troponin I (< 0.04) ng/mL B-Natriuretic Peptide 490 H (Less than 100) pg/mL TSH (0.340-5.600) mcIU/mL Urine Color Yellow (Yellow) Urine Clarity Slightly Hazy (Clear) Urine pH 5.5 (5.0-8.0) pH Units Ur Specific [place] 1.020 (1.010-1.025) Urine Protein 30 H (Neg-Trace) mg/dL Urine Glucose (UA) Normal (Normal) mg/dL Urine Ketones Negative (Negative) mg/dL Urine Blood Negative (Negative) Urine Nitrite Negative (Negative) Urine Bilirubin Negative (Negative) Urine Urobilinogen Normal (Normal) mg/dL Ur Leukocyte Esterase Negative (Negative) Urine Microscopic RBC 3-5 H (0-3) per hpf Urine Microscopic WBC 0-3 (0-3) per hpf Ur Squamous Epith Cells Many H (None-Few) per lpf Urine Bacteria None Seen (None-Few) per hpf Hyaline Casts None Seen (None-Few) per lpf Ur Culture Indicated? NO (NO) - Radiology Data Radiology results reviewed: Yes I reviewed the patient's radiology results. - EKG Data EKG #1 EKG results narrative: Patient's EKG shows atrial fibrillation with RVR at 138 bpm with T depression and T-wave inversion in the lateral leads which appears new from prior EKG. Old EKG was obtained from 07/07/2017. Mary - ShaneAFlorenciaRFlorencia Transition of Care: d/w HospitalistDr. Huffman Situation: Demographics, MOA Background: Presenting Complaint, Relevant PMH, Meds, & Allergies Assessment: Vital Signs, Course and respsone to treatment, Patient/Family Expectation, Pertinant Lab Results S.B.A.Spencer Report Given to: Dr. Armida Hernandez Repor Time: 16:54
[2017-08-24 15:36] LABS: Basophils % 0.5 %; Eosinophils # 0.1 K/mcL (0.0-0.6); Eosinophils % 1.7 %; Hematocrit 43.1 % (35.3-44.9); Hemoglobin 13.8 g/dL (11.5-15.4); Immature Granulocytes % 0.2 % (0-4); Lymphocytes # 1.1 K/mcL (0.6-4.6); Lymphocytes % 26.9 %; Mean Corpuscular Hemoglobin 30.5 pg (28.0-33.3); Mean Corpuscular Volume 95.1 fL (83.0-100.0); Mean Platelet Volume 9.4 fL (9.4-12.4); Monocytes # 0.3 K/mcL (0.0-1.3); Monocytes % 6.8 %; Neutrophils # 2.6 K/mcL (1.6-8.9); Platelet Count 208 K/mcL (140-400); Red Blood Count 4.53 M/mcL (3.82-4.97); Red Cell Distribution Width 15.2 % (11.5-14.5); Segmented Neutrophils % 63.9 %
[2017-08-24 15:51] LABS: Calcium 9.7 mg/dL (8.6-10.3); Carbon Dioxide 33 mEq/L (23-29); Chloride 103 mEq/L (98-107); INR 1.6; Potassium 3.5 mEq/L (3.5-5.1); Prothrombin Time 17.2 Seconds (9.4-12.1); Sodium 142 mEq/L (136-145)
[2017-08-24 15:51] LABS: Bilirubin,Urine Negative (Negative); Blood,Urine Negative (Negative); Color,Urine Yellow (Yellow); Glucose,Urine (UA) Normal (Normal); Ketones,Urine Negative (Negative); Leukocyte Esterase,Urine Negative (Negative); Nitrite,Urine Negative (Negative); PH,Urine 5.5 pH Units (5.0-8.0); Protein,Urine 30 mg/dL (Neg-Trace); Urobilinogen,Urine Normal (Normal)
[2017-08-24 15:52] LABS: Bacteria,Urine None Seen per hpf (None-Few); Hyaline Casts,Urine None Seen per lpf (None-Few); Squamous Epithelial Cell,Urine Many per lpf (None-Few); WBC,Urine 0-3 per hpf (0-3)
[2017-08-24 15:53] LABS: Activated Partial Thrombo Time 35.8 Seconds (26.0-36.0)
[2017-08-24 15:57] LABS: BUN/Creatinine Ratio 23 (6-26); Blood Urea Nitrogen 19 mg/dL (8-23); Glucose 114 mg/dL (70-105); Osmolality,Calculated 297 (280-300); eGFR For African Americans > 60 (> 60); eGFR For Non-African Americans > 60 (> 60)
[2017-08-24 15:58] LABS: Clarity,Urine Slightly Hazy (Clear)
[2017-08-24 16:09] LABS: Thyroid Stimulating Hormone 6.467 mcIU/mL (0.340-5.600)
[2017-08-24] MEDS ORDERED: 0.9 % Sodium Chloride 500 ML IVC ONE (16:27)
--- NOTE | 2017-08-24 17:49 | Internal Med History&Physical ---
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 Lopez is a 87 year old female Patient with history of for atrial fibrillation, hypertension, congestive heart failure, high cholesterol, and hypothyroidism. She was sent from cardiology office noted to have atrial fib with rapid ventricular response heart rate about 140 patient denies any chest pain has a bilateral lower extremity edema she says she been taking a medication like she is supposed to in the ER is given Cardizem and heart rate came down will be admit will be admitted for further treatment and cardiology to see patient in a.m. Past Med Surg Social Fam HX - Past Medical History Medical history: atrial fibrillation, hyperlipidemia, hypertension, osteoporosis , thyroid disease, other Psychiatric history: no psych history - Social History Smoking Status: Never smoker Smokeless Tobacco Status: No Alcohol use: none Drug use: none - Family History Brother Living Status: Hx Family Cardiac Disorders: Yes Father Living Status: Hx Family Cardiac Disorders: Yes Internal Medicine - H&P: Meds Aspirin [Lo-Dose Aspirin EC] 81 mg PO DAILY 04/28/17 [History] Latanoprost [Xalatan] 1 drop OP QPM 04/28/17 [History] Levothyroxine [Synthroid] 100 mcg PO QAM 04/28/17 [History] Diltiazem CD (24hr) [Cardizem CD] 180 mg PO DAILY #30 cap.er.24h 05/03/17 [Rx] Furosemide [Lasix] 20 mg PO BID #60 tablet 05/03/17 [Rx] Levofloxacin [Levaquin] 750 mg PO Q48H #1 tablet 05/03/17 [Rx] Metoprolol XL (24 HR) Succ [Toprol Xl] 75 mg PO BID #90 tab.er.24h 05/03/17 [Rx] Potassium Chloride 20 meq PO BID #60 tab.er.prt 05/03/17 [Rx] Warfarin [Coumadin] 2.5 mg PO 1800 #30 tablet 05/03/17 [Rx] Oxycodone HCl 5 mg PO Q6HR PRN #20 tablet 07/07/17 [Rx] 3 Allergy/AdvReac Type Severity Reaction Status Date / Time No Known Allergies Allergy Verified 04/28/17 12:18 All Systems PM: A 10-system review of systems was performed and is negative for pertinent findings except as documented above in the HPI. - Constitutional Constitutional: fatigue - EENT Eyes: no change in vision, no discharge, no pain, no photophobia Ears: no ear discharge, no ear pain, no tinnitus Nose, mouth and throat: no dysphagia, no nasal discharge, no neck pain, no sore throat - Cardiovascular Cardiovascular ROS IM: irregular heart rhythm - Respiratory Respiratory: no cough, no dyspnea, no wheezing, no excessive phlegm production - Gastrointestinal Gastrointestinal: no abdominal pain, no diarrhea, no hematemesis, no hematochezia, no melena, no nausea, no vomiting - Constitutional Vitals: Temp Pulse Resp BP Pulse Ox 98.2 F 107 16 106/78 96 08/24/17 14:49 08/24/17 17:36 08/24/17 17:36 08/24/17 17:36 08/24/17 17:36 - Eye Eye exam: Present: PERRL, conjuntiva pink, sclera anicteric Pupils: Present: PERRL - Neck Neck exam general surgery: Present: supple, trachea midline. Absent: lymphadenopathy - Respiratory Respiratory exam: Present: CTAB. Absent: accessory muscle use, rales, rhonchi, wheezes - Cardiovascular Cardiovascular exam: Present: irregular rhythm, systolic murmur, tachycardia - GI/Abdominal GI/Abdominal exam: Present: normal bowel sounds, soft, no peritoneal signs. Absent: distended, tenderness Internal Med - H&P Results - Labs CBC & Chem 7: 08/24/17 15:20 08/24/17 15:20
[2017-08-24] MEDS ORDERED: Naloxone 0.4 MG/ML INJ IVP PRN (17:53)
[2017-08-24] MEDS ORDERED: *HR* OxyCODONE Immed Rel 5 MG TABLET PO PRN (18:00)
[2017-08-24] MEDS ORDERED: *HR* Warfarin 2.5 MG TABLET PO SCH (18:00)
[2017-08-24] MEDS ORDERED: 0.9 % Sodium Chloride 1,000 ML ONE (18:49)
[2017-08-24] MEDS ORDERED: 0.9 % Sodium Chloride 1,000 ML IVC SCH (19:00)
[2017-08-24] MEDS: Metoprolol XL (24 HR) Succ 50 MG TAB.ER.24H PO SCH (20:12)
[2017-08-25 00:48] LABS: Basophils % 0.9 %; Eosinophils # 0.1 K/mcL (0.0-0.6); Eosinophils % 3.6 %; Hematocrit 35.2 % (35.3-44.9); Lymphocytes # 1.1 K/mcL (0.6-4.6); Lymphocytes % 31.9 %; Mean Corpuscular HGB Conc 31.5 g/dL (31.6-35.5); Mean Corpuscular Hemoglobin 30.3 pg (28.0-33.3); Mean Corpuscular Volume 96.2 fL (83.0-100.0); Mean Platelet Volume 9.6 fL (9.4-12.4); Monocytes # 0.3 K/mcL (0.0-1.3); Monocytes % 8.4 %; Neutrophils # 1.9 K/mcL (1.6-8.9); Platelet Count 173 K/mcL (140-400); Red Blood Count 3.66 M/mcL (3.82-4.97); Red Cell Distribution Width 15.3 % (11.5-14.5); Segmented Neutrophils % 55.2 %
[2017-08-25 00:51] LABS: Hemoglobin 11.1 g/dL (11.5-15.4)
[2017-08-25] MEDS ORDERED: Acetaminophen 325 MG TABLET PO PRN ×2 (03:55→08:43)
[2017-08-25] MEDS ORDERED: Diltiazem CD (24hr) 180 MG CAPSULE PO SCH (09:00)
[2017-08-25] MEDS: Diltiazem CD (24hr) 240 MG CAPSULE PO SCH (09:34)
[2017-08-25] MEDS: Metoprolol XL (24 HR) Succ 50 MG TAB.ER.24H PO SCH ×2 (09:34→21:48)
[2017-08-25] MEDS: Aspirin Enteric Coated 81 MG Tablet PO SCH (09:34)
[2017-08-25] MEDS ORDERED: Furosemide 20 MG/2 ML VIAL IVP ONE (09:43)
[2017-08-25 09:59] LABS: INR 1.7; Prothrombin Time 18.7 Seconds (9.4-12.1)
--- NOTE | 2017-08-25 10:42 | Cardiology Consult Note ---
Date of Encounter: 08/25/17 Time of Encounter: 10:36 Assessment and Plan (1) Atrial fibrillation with RVR Current Visit: Yes Status: Acute asymtomatic atrial fibrillation with RVR. Previously rate controlled on toprol and cardizem. On cardizem gtt. HR improved. HR 75-120 currently. Agree with increase of oral cardizem and weaning cardizem gtt to keep HR less than 100. On coumadin therapy monitored by home health. Recommend pharmacy to dose to keep INR 2.0-3.0. Increase cardizem and toprol XL as tolerated. TTE 04/28/17- Normal LV systolic function, LVEF 65%. Indeterminate diastolic function due to atrial fibrillation. Mildly dilated right ventricle with normal function. Severely dilated bilateral atrium. Mild aortic stenosis. Mild aortic regurgitation. Mild tricuspid regurgitation.No evidence of pulmonary hypertension. TSH elevated at 6.46- primary team to follow. (2) Congestive heart failure Current Visit: No Status: Chronic H/o DCHF and BLE for the past several months. Give IV lasix x1 and restart home lasix and leg wraps. Noted to have weight loss. Monitor BMP. CHF education reviewed. Low sodium diet. Qualifiers: Congestive heart failure type: diastolic Congestive heart failure chronicity: acute on chronic Qualified Code(s): I50.33 - Acute on chronic diastolic (congestive) heart failure Discussion w patient/family: The assessment and plan as outlined above was discussed with the patient and/or family members who expressed understanding and agreement. All questions were answered. Thank you for involving us in the care of your patient. Please call with any questions. History of Present Illness Consult date: 08/25/17 Requesting physician: Janny Huffman Consult reason: afib with RVR Chief complaint: increased heart rate History of present illness: Ms. Lopez is a 87 year old female with a history of afib on coumadin, HTN, DCHF, hypothyroidism and DVT. SHe presented from the cardiology office when she was found to have atrial fibrillation with RVR during routine f/u. HR in the 140 's. She denies chest pain or palpitations. Denies orthpnea, PND, or edema. She was diagnosed with atrial fibrillation last April and was placed on toprol and cardizem for rate control. She reports breaking her back one month ago and she still has alot of pain in her back. C/o BLE edema since her hospital stay last April for atrial fibrillation with RVR. She was noted to have lost 10lbs in the cardiology office since her last visit. She is currently on cardizem gtt. Past Med Surg Social Fam HX - Past Medical History Medical history: atrial fibrillation, hyperlipidemia, hypertension, osteoporosis , thyroid disease, other Psychiatric history: no psych history - Social History Smoking Status: Never smoker Smokeless Tobacco Status: No Alcohol use: none Drug use: none - Family History Brother Living Status: Hx Family Cardiac Disorders: Yes Father Living Status: Hx Family Cardiac Disorders: Yes Medications and Allergies Aspirin [Lo-Dose Aspirin EC] 81 mg PO DAILY 04/28/17 [History] Latanoprost [Xalatan] 1 drop OP QPM 04/28/17 [History] Levothyroxine [Synthroid] 100 mcg PO QAM 04/28/17 [History] Diltiazem CD (24hr) [Cardizem CD] 180 mg PO DAILY #30 cap.er.24h 05/03/17 [Rx] Furosemide [Lasix] 20 mg PO BID #60 tablet 05/03/17 [Rx] Metoprolol XL (24 HR) Succ [Toprol Xl] 75 mg PO BID #90 tab.er.24h 05/03/17 [Rx] Potassium Chloride 20 meq PO BID #60 tab.er.prt 05/03/17 [Rx] Calcitonin,[place],Synthetic [Calcitonin-[place]] 1 spr NS AD 08/25/17 [History] Warfarin [Coumadin] 1 mg PO DAILY 08/25/17 [History] 3 Allergy/AdvReac Type Severity Reaction Status Date / Time No Known Allergies Allergy Verified 04/28/17 12:18 All Systems Review: A 10-system review of systems was performed and is negative for pertinent findings except as documented above in the HPI. Physical Examination Vital Signs, Last 4 Hours Temp Pulse Resp BP Pulse Ox 08/25/17 08:21 97.7 F 95 16 117/83 96 General: Conversant, No Apparent Distress HEENT: Atraumatic, Normocephaly, Mucus Membranes Moist Neck: No JVD, Normal carotid pulses Cardiac: Other (Irregulary irregular) Lungs: Normal Breath Sounds, No Wheeze, Rales, Rhonchi Neuro: Alert and responsive, No focal deficits noted Abdomen: Soft, Non-Tender Skin: No rashes noted on visualized skin Musculoskeletal: No Chest Wall Tenderness Extremities: No Clubbing, No Cyanosis, Normal Pulses, Other (1+ BLE edema up to mid thapa.) Results 08/25/17 00:26 08/24/17 15:20 Lab Results 08/24/17 08/25/17 08/25/17 18:33 00:26 00:26 WBC 3.4 L Hgb 11.1 L D Hct 35.2 L Plt Count 173 INR Magnesium Troponin I < 0.03 < 0.03 08/25/17 08/25/17 08/25/17 00:26 05:29 09:28 WBC Hgb Hct Plt Count INR 1.7 Magnesium 1.9 Troponin I < 0.03 - Imaging and Cardiology Echo: report reviewed - EKG Interpretation EKG results cardiology: personally reviewed Consult Discharge Plan - Plan Referrals: Peyman Noland Jr, MD [Primary Care Provider] -
--- NOTE | 2017-08-25 14:20 | Electrocardiograph Report ---
[address] [place] [address] Test Date: 2017-08-24 Pat Name: Chanda Lopez Department: 102 Room: 2A55 Gender: F Nurse Technician: [place] : 1930 Requested By: Magen Bah Order Number: [id number] Reading MD: Joel Hernandez DO Measurements Intervals [place] Rate: 138 P: LA: 0 QRS: 270 QRSD: 89 T: 252 QT: 283 QTc: 364 Interpretive Statements ATRIAL FIBRILLATION WITH RAPID VENTRICULAR RESPONSE POSSIBLE RIGHT VENTRICULAR CONDUCTION DELAY ANTEROSEPTAL MYOCARDIAL INFARCTION, OF INDETERMINATE AGE NONSPECIFC ST-T CHANGES Electronically Signed On 08-25-2017 14:19:04 EST by Joel Hernandez DO
--- NOTE | 2017-08-25 14:58 | Internal Med Progress Note ---
Date of Encounter: 08/25/17 Time of Encounter: 14:56 - Assessment and plan (1) Atrial fibrillation with RVR Current Visit: Yes Status: Acute Assessment and plan: increased dose of Cardizem to 240mg PO qd increased Metoprolol to 75mg PO BID anticoagulated with coumadin pharmacy to dose coumadin monitor INR, goal INR: 2-3 cardiology evaluation appreciated tentative d/c in am if remains clinically stable (2) Hypothyroidism Current Visit: Yes Status: Chronic Assessment and plan: continue home dose of levothyroxine Elevated TSH however improved from previous reading, will continue current levothyroxine and will obtain repeat TSH level, FT3 and FT4 as outpatient. Pt's PCP to adjust therapy as needed Qualifiers: Hypothyroidism type: unspecified Qualified Code(s): E03.9 - Hypothyroidism , unspecified (3) Congestive heart failure Current Visit: No Status: Chronic Assessment and plan: no signs of acute CHF decompensation continue home meds Qualifiers: Congestive heart failure type: diastolic Congestive heart failure chronicity: acute on chronic Qualified Code(s): I50.33 - Acute on chronic diastolic (congestive) heart failure (4) HTN (hypertension) Current Visit: No Status: Chronic Assessment and plan: BP within acceptable range Qualifiers: Hypertension type: essential hypertension Qualified Code(s): I10 - Essential (primary) hypertension (5) DVT prophylaxis Current Visit: Yes Status: Acute Assessment and plan: on Coumadin - Subjective Interval history: Patient seen and examined at bedside. Resting in bed and denies any discomfort. rate controlled with PO Cardizem and BB. Off cardizem gtt at this time. - Constitutional Vitals: Temp Pulse Resp BP Pulse Ox 97.6 F 106 16 114/73 96 08/25/17 10:41 08/25/17 10:41 08/25/17 10:41 08/25/17 10:41 08/25/17 10:41 General appearance: Present: A&O X 3, no acute distress, answers questions appropriately - Head Head exam: Present: atraumatic, normocephalic - Eye Eye exam: Present: conjuntiva pink, sclera anicteric - Respiratory Respiratory exam: Present: CTAB. Absent: accessory muscle use, rales, rhonchi, wheezes - Cardiovascular Cardiovascular exam: Present: irregular rhythm, +S1, +S2 - GI/Abdominal GI/Abdominal exam: Present: normal bowel sounds, soft, no peritoneal signs. Absent: distended, tenderness - Extremities Exam Extremities exam: Present: warm, radial pulses palpable and symmetrical ( bilateral lower extremity chronic venous stasis). Absent: calf tenderness - Neurological Exam Neurological exam: Present: alert, oriented X3 - Psychiatric Psychiatric exam: Present: normal affect, normal mood Internal Medicine: Result - Labs CBC & Chem 7: 08/25/17 00:26 08/24/17 15:20 Labs: Short CBC 08/25/17 Range/Units 00:26 WBC 3.4 L (4.3-11.1) K/mcL Hgb 11.1 L D (11.5-15.4) g/dL Hct 35.2 L (35.3-44.9) % Plt Count 173 (140-400) K/mcL Neutrophils # 1.9 (1.6-8.9) K/mcL Cardiac Enzymes 08/24/17 08/25/17 08/25/17 Range/Units 18:33 00:26 05:29 Troponin I < 0.03 < 0.03 < 0.03 (< 0.04) ng/mL - ABG Interpretation ABG results: PT/INR, D-dimer PT 18.7 Seconds (9.4-12.1) H 08/25/17 09:28 Consult Discharge Plan - Plan Referrals: Peyman Noland Jr, MD [Primary Care Provider] -
[2017-08-25] MEDS: Furosemide 20 MG TABLET PO SCH (17:13)
[2017-08-25] MEDS ORDERED: *HR* Warfarin 2.5 MG TABLET PO SCH (18:00)
[2017-08-25] MEDS ORDERED: *HR* Warfarin 4 MG TABLET PO ONE (18:00)
[2017-08-25] MEDS ORDERED: Warfarin perPT PO PRN (18:00)
[2017-08-25] MEDS: *HR* OxyCODONE Immed Rel 5 MG TABLET PO PRN (21:49)
[2017-08-26] MEDS: *HR* OxyCODONE Immed Rel 5 MG TABLET PO PRN (04:02)
[2017-08-26 05:07] LABS: Basophils % 0.6 %; Eosinophils # 0.1 K/mcL (0.0-0.6); Eosinophils % 2.9 %; Hemoglobin 11.8 g/dL (11.5-15.4); Immature Granulocytes % 0.2 % (0-4); Lymphocytes # 1.4 K/mcL (0.6-4.6); Lymphocytes % 30.3 %; Mean Corpuscular HGB Conc 31.1 g/dL (31.6-35.5); Mean Corpuscular Hemoglobin 30.2 pg (28.0-33.3); Mean Corpuscular Volume 97.2 fL (83.0-100.0); Mean Platelet Volume 9.6 fL (9.4-12.4); Monocytes # 0.4 K/mcL (0.0-1.3); Monocytes % 7.6 %; Neutrophils # 2.8 K/mcL (1.6-8.9); Platelet Count 198 K/mcL (140-400); Red Blood Count 3.91 M/mcL (3.82-4.97); Red Cell Distribution Width 15.4 % (11.5-14.5); Segmented Neutrophils % 58.4 %
[2017-08-26 05:12] LABS: INR 1.9
[2017-08-26 05:26] LABS: BUN/Creatinine Ratio 24 (6-26); Blood Urea Nitrogen 17 mg/dL (8-23); Carbon Dioxide 28 mEq/L (23-29); Chloride 107 mEq/L (98-107); Glucose 90 mg/dL (70-105); Magnesium 1.9 mg/dL (1.6-2.6); Osmolality,Calculated 297 (280-300); Phosphorous 3.1 mg/dL (2.7-4.5); Potassium 3.6 mEq/L (3.5-5.1); Sodium 143 mEq/L (136-145); eGFR For African Americans > 60 (> 60); eGFR For Non-African Americans > 60 (> 60)
[2017-08-26] MEDS: Furosemide 20 MG TABLET PO SCH ×2 (08:51→16:27)
[2017-08-26] MEDS: Metoprolol XL (24 HR) Succ 50 MG TAB.ER.24H PO SCH ×2 (08:51→20:45)
[2017-08-26] MEDS: Diltiazem CD (24hr) 240 MG CAPSULE PO SCH (08:51)
[2017-08-26] MEDS: Aspirin Enteric Coated 81 MG Tablet PO SCH (08:54)
--- NOTE | 2017-08-26 09:38 | Internal Med Progress Note ---
Date of Encounter: 08/26/17 Time of Encounter: 09:20 - Assessment and plan (1) Atrial fibrillation with RVR Current Visit: Yes Status: Acute Assessment and plan: Rate remains poorly controlled Cardiology re-evaluation requested continue Cardizem and BB at this time anticoagulated with coumadin pharmacy to dose coumadin monitor INR, goal INR: 2-3 (2) Hypothyroidism Current Visit: Yes Status: Chronic Assessment and plan: continue home dose of levothyroxine Elevated TSH however improved from previous reading, will continue current levothyroxine and will obtain repeat TSH level, FT3 and FT4 as outpatient. Pt's PCP to adjust therapy as needed Qualifiers: Hypothyroidism type: unspecified Qualified Code(s): E03.9 - Hypothyroidism , unspecified (3) Congestive heart failure Current Visit: No Status: Chronic Assessment and plan: no signs of acute CHF decompensation continue home meds Qualifiers: Congestive heart failure type: diastolic Congestive heart failure chronicity: acute on chronic Qualified Code(s): I50.33 - Acute on chronic diastolic (congestive) heart failure (4) HTN (hypertension) Current Visit: No Status: Chronic Assessment and plan: BP low but acceptable clinically asymptomatic continue home meds Qualifiers: Hypertension type: essential hypertension Qualified Code(s): I10 - Essential (primary) hypertension (5) DVT prophylaxis Current Visit: Yes Status: Acute Assessment and plan: on Coumadin - Subjective Interval history: Patient seen and examined at bedside. Sitting in chair and reports of not being able to get much rest overnight. HR remains uncontrolled and pt states she has had elevated HR since april of last year. Denies any chest pain or shortness of breath. - Constitutional Vitals: Temp Pulse Resp BP Pulse Ox 97.7 F 118 18 109/67 94 08/26/17 07:06 08/26/17 07:06 08/26/17 07:06 08/26/17 07:06 08/26/17 07:06 General appearance: Present: cooperative, A&O X 3, pleasant, no acute distress, answers questions appropriately - Head Head exam: Present: atraumatic, normocephalic - Eye Eye exam: Present: conjuntiva pink, sclera anicteric - Respiratory Respiratory exam: Present: CTAB. Absent: respiratory distress, wheezes - Cardiovascular Cardiovascular exam: Present: irregular rhythm, +S1, +S2, tachycardia - GI/Abdominal GI/Abdominal exam: Present: normal bowel sounds, soft, no peritoneal signs. Absent: distended, tenderness - Extremities Exam Extremities exam: Present: warm, radial pulses palpable and symmetrical. Absent : calf tenderness (bilateral lower extremity chronic venous stasis ) - Neurological Exam Neurological exam: Present: alert, oriented X3 - Psychiatric Psychiatric exam: Present: normal affect, normal mood Internal Medicine: Result - Labs CBC & Chem 7: 08/26/17 04:34 08/26/17 04:34 Labs: Short CBC 08/26/17 Range/Units 04:34 WBC 4.8 (4.3-11.1) K/mcL Hgb 11.8 (11.5-15.4) g/dL Hct 38.0 (35.3-44.9) % Plt Count 198 (140-400) K/mcL Neutrophils # 2.8 (1.6-8.9) K/mcL BMP 08/26/17 04:34 Sodium 143 Potassium 3.6 Chloride 107 Carbon Dioxide 28 BUN 17 Creatinine 0.72 Glucose 90 Calcium 9.0 - ABG Interpretation ABG results: PT/INR, D-dimer PT 21.0 Seconds (9.4-12.1) H 08/26/17 04:34 Consult Discharge Plan - Plan Referrals: Peyman Noland Jr, MD [Primary Care Provider] -
[2017-08-26] MEDS: *HR* Digoxin 0.5 MG/2 ML AMPUL IVP SCH ×2 (11:54→17:42)
--- NOTE | 2017-08-26 12:59 | Cardiology Progress Note ---
Date of Encounter: 08/26/17 Time of Encounter: 11:00 Assessment and Plan (1) Atrial fibrillation with RVR Current Visit: Yes Status: Acute asymptomatic atrial fibrillation with RVR. Previously rate controlled on toprol and cardizem at home. Cardizem and toprol both increased during stay without good rate control. Discussed with Dr. Fernandez, start digoxin with IV load. HR 100-120. B/p 90's systolic. On coumadin therapy monitored by home health. Recommend pharmacy to dose to keep INR 2.0-3.0. TTE 04/28/17- Normal LV systolic function, LVEF 65%. Indeterminate diastolic function due to atrial fibrillation. Mildly dilated right ventricle with normal function. Severely dilated bilateral atrium. Mild aortic stenosis. Mild aortic regurgitation. Mild tricuspid regurgitation.No evidence of pulmonary hypertension. TSH elevated at 6.46- primary team to follow. (2) Congestive heart failure Current Visit: No Status: Chronic H/o DCHF and BLE for the past several months. BLE appears to be chronic and has improved over past several months. Given IV lasix x1 yesterday and restart home lasix. She will likely not tolerate higher dose of lasix at this time due to low b/p. Continue leg wraps. Noted to have weight loss at last OV. Monitor BMP. CHF education reviewed. Low sodium diet. Qualifiers: Congestive heart failure type: diastolic Congestive heart failure chronicity: acute on chronic Qualified Code(s): I50.33 - Acute on chronic diastolic (congestive) heart failure Discussion w patient/family: The assessment and plan as outlined above was discussed with the patient and/or family members who expressed understanding and agreement. All questions were answered. Thank you for involving us in the care of your patient. Please call with any questions. Subjective Principal diagnosis: atrial fibrillation Interval history: Ms. Lopez is sitting in her chair. C/o continued BLE edema. States that she is on 40 mg lasix BID at home. Objective Vital Signs, Last 4 Hours Temp Pulse Resp BP Pulse Ox 08/26/17 11:38 98.3 F 75 17 95/61 94 General: Conversant, No Apparent Distress HEENT: Atraumatic, Normocephaly, Mucus Membranes Moist Neck: No JVD, Normal carotid pulses Cardiac: Other (Irregularly irregular) Lungs: Normal Breath Sounds, No Wheeze, Rales, Rhonchi Neuro: Alert and responsive, No focal deficits noted Abdomen: Soft, Non-Tender Skin: No rashes noted on visualized skin Musculoskeletal: No Chest Wall Tenderness Extremities: No Clubbing, No Cyanosis, Normal Pulses, Other (2+ BLE edema) Results 08/26/17 04:34 08/26/17 04:34 Lab Results 08/26/17 08/26/17 08/26/17 04:34 04:34 04:34 WBC 4.8 Hgb 11.8 Hct 38.0 Plt Count 198 INR 1.9 Sodium 143 Potassium 3.6 Chloride 107 Carbon Dioxide 28 BUN 17 Creatinine 0.72 Glucose 90 Calcium 9.0 Magnesium 1.9 - Imaging and Cardiology Echo: report reviewed - EKG Interpretation EKG results cardiology: personally reviewed Consult Discharge Plan - Plan Referrals: Peyman Noland Jr, MD [Primary Care Provider] -
[2017-08-26] MEDS ORDERED: *HR* Warfarin 2.5 MG TABLET PO ONE (18:00)
[2017-08-27 08:44] LABS: INR 2.3; Prothrombin Time 25.2 Seconds (9.4-12.1)
[2017-08-27] MEDS: Diltiazem CD (24hr) 240 MG CAPSULE PO SCH (08:51)
[2017-08-27] MEDS: Aspirin Enteric Coated 81 MG Tablet PO SCH (08:51)
[2017-08-27] MEDS: Metoprolol XL (24 HR) Succ 50 MG TAB.ER.24H PO SCH (08:51)
[2017-08-27] MEDS: Furosemide 20 MG TABLET PO SCH (08:51)
[2017-08-27] MEDS ORDERED: *HR* Digoxin 0.125 MG TABLET PO SCH (09:00)
--- NOTE | 2017-08-27 10:26 | Cardiology Progress Note ---
Date of Encounter: 08/27/17 Time of Encounter: 07:45 Assessment and Plan (1) Atrial fibrillation with RVR Current Visit: Yes Status: Acute Asymptomatic atrial fibrillation with RVR. Previously rate controlled on toprol and cardizem at home. Cardizem and toprol both increased during stay without good rate control. Digoxin added yesterday with dig load. Avg HR 92 BPM over last 12 hours. Rate control improved. Continue dogoxin 0.125 mg daily. On coumadin therapy monitored by home health. Recommend pharmacy to dose to keep INR 2.0-3.0. TTE 04/28/17- Normal LV systolic function, LVEF 65%. Indeterminate diastolic function due to atrial fibrillation. Mildly dilated right ventricle with normal function. Severely dilated bilateral atrium. Mild aortic stenosis. Mild aortic regurgitation. Mild tricuspid regurgitation.No evidence of pulmonary hypertension. TSH elevated at 6.46- primary team to follow. Out-patient f/u in 2-3 weeks with cardiology recommended. Call with questions. (2) Congestive heart failure Current Visit: No Status: Chronic H/o DCHF and BLE for the past several months. BLE appears to be chronic and has improved over past several months. Given IV lasix x1 and restart lasix. Ok to increase to home dose today as blood pressure has improved. Continue leg wraps. Monitor BMP. CHF education reviewed. Low sodium diet. Qualifiers: Congestive heart failure type: diastolic Congestive heart failure chronicity: acute on chronic Qualified Code(s): I50.33 - Acute on chronic diastolic (congestive) heart failure Discussion w patient/family: The assessment and plan as outlined above was discussed with the patient and/or family members who expressed understanding and agreement. All questions were answered. Thank you for involving us in the care of your patient. Please call with any questions. Subjective Principal diagnosis: atrial fibrillation Interval history: Ms. Lopez has no new complaints. Objective Vital Signs, Last 4 Hours Temp Pulse Resp BP Pulse Ox 08/27/17 07:03 97.7 F 77 17 113/61 974 General: Conversant, No Apparent Distress HEENT: Atraumatic, Normocephaly, Mucus Membranes Moist Neck: No JVD, Normal carotid pulses Cardiac: Other (Irregularly irregular) Lungs: Normal Breath Sounds, No Wheeze, Rales, Rhonchi Neuro: Alert and responsive, No focal deficits noted Abdomen: Soft, Non-Tender Skin: No rashes noted on visualized skin Musculoskeletal: No Chest Wall Tenderness Extremities: No Clubbing, No Cyanosis, Normal Pulses, Other (2= BLE edema) Results 08/26/17 04:34 08/26/17 04:34 Lab Results 08/27/17 06:44 INR 2.3 - Imaging and Cardiology Echo: report reviewed - EKG Interpretation EKG results cardiology: personally reviewed Consult Discharge Plan - Plan Referrals: Peyman Noland Jr, MD [Primary Care Provider] - 09/02/17 1:00 pm
[2017-08-27] MEDS ORDERED: Furosemide 20 MG TABLET PO ONE (11:00)
--- NOTE | 2017-08-27 12:10 | Discharge Summary ---
Date of Encounter: 08/27/17 Time of Encounter: 11:48 - Discharge Diagnosis (1) Atrial fibrillation with RVR Priority: Primary Status: Acute (2) Hypothyroidism Priority: Secondary Status: Chronic Qualifiers: Hypothyroidism type: unspecified Qualified Code(s): E03.9 - Hypothyroidism , unspecified (3) Congestive heart failure Priority: Secondary Status: Chronic Qualifiers: Congestive heart failure type: diastolic Congestive heart failure chronicity: acute on chronic Qualified Code(s): I50.33 - Acute on chronic diastolic (congestive) heart failure (4) HTN (hypertension) Priority: Secondary Status: Chronic Qualifiers: Hypertension type: essential hypertension Qualified Code(s): I10 - Essential (primary) hypertension (5) DVT prophylaxis Priority: Secondary Status: Acute - Discharge Medications Prescriptions: Digoxin [Lanoxin] 0.125 mg PO DAILY #30 tablet Diltiazem CD (24hr) [Cardizem CD] 240 mg PO DAILY #30 cap.er.24h Home Medications: Aspirin [Lo-Dose Aspirin EC] 81 mg PO DAILY 04/28/17 [History] Latanoprost [Xalatan] 1 drop OP QPM 04/28/17 [History] Levothyroxine [Synthroid] 100 mcg PO QAM 04/28/17 [History] Furosemide [Lasix] 20 mg PO BID #60 tablet 05/03/17 [Rx] Metoprolol XL (24 HR) Succ [Toprol Xl] 75 mg PO BID #90 tab.er.24h 05/03/17 [Rx] Potassium Chloride 20 meq PO BID #60 tab.er.prt 05/03/17 [Rx] Calcitonin,[place],Synthetic [Calcitonin-[place]] 1 spr NS AD 08/25/17 [History] Warfarin [Coumadin] 1 mg PO DAILY 08/25/17 [History] Digoxin [Lanoxin] 0.125 mg PO DAILY #30 tablet 08/27/17 [Rx] Diltiazem CD (24hr) [Cardizem CD] 240 mg PO DAILY #30 cap.er.24h 08/27/17 [Rx] Allergies/Adverse Reactions: 3 Allergy/AdvReac Type Severity Reaction Status Date / Time No Known Allergies Allergy Verified 04/28/17 12:18 Date of admission: 08/26/17 14:13 Primary care physician: Peyman Noland Jr, MD Consults: Cardiology: Dr. Fernandez, Dr. Hernandez Discharging clinician: Lida Whitaker Anticipated date of discharge: 08/27/17 - Patient Status Disposition: Home Health Service Condition: Good Functional capacity at discharge: uses cane/walker Overall status at discharge: patient is back to baseline - Discharge Instructions Follow Up With: Peyman Noland Jr, MD [Primary Care Provider] - 09/02/17 1:00 pm Additional Instructions: Please follow up with your primary care physician within five days after your discharge from the hospital. Please follow up with cardiology within one to two weeks after your discharge from the hospital. Your home medications have been changed as follows: 1. Cardizem has been increased to 240mg once a day. 2. Digoxin 0.125mg once a day has been added. Please closely monitor your blood pressure at home. Hold your Metoprolol dose for systolic blood pressure less than 100. Please ask your primary care physician about your thyroid function test. You were noted to have a high TSH level during your hospitalization. Obtain the prescribed lab work prior to your appointment with your primary care physician. Resume all other medications as prescribed by your primary care physician. Please continue with your INR monitoring as per your outpatient schedule. - Diet and Activity Activity: increase activity as tolerated Diet: low fat, low cholesterol, low salt diet Hospital course: Ms. Lopez is a 87 year old female with PMH of Afib, HTN, CHF, HLD, hypothyroidism who was admitted for Afib with RVR. She was started on cardizem gtt and her home dose of cardizem was increased. She was followed by cardiology. She initially had better rate control with the increase in cardizem however went back into Afib with RVR with rate poorly controlled. She was noted to have labile BP due to which digoxin was added. Her rate was appropriately controlled with digoxin and she tolerated the medication well. At this time she is hemodynamically stable and will be discharged to home with home health services. She is to follow up with PCP and cardiology after discharge. Pt demonstrates understanding of her diagnosis and agree with the discharge care and plan. - Time Spent with Patient Total time spent providing and/or coordinating discharge services: Less than 30 minutes - Constitutional Vitals: Temp Pulse Resp BP Pulse Ox 97.9 F 89 16 106/72 89 08/27/17 10:33 08/27/17 10:33 08/27/17 10:33 08/27/17 10:33 08/27/17 10:33 General appearance: Present: cooperative, A&O X 3, pleasant, no acute distress, answers questions appropriately - Head Head exam: Present: atraumatic, normocephalic - Respiratory Respiratory exam: Present: CTAB. Absent: respiratory distress, wheezes - Cardiovascular Cardiovascular exam: Present: RRR, +S1, +S2. Absent: diastolic murmur, gallop, rubs, systolic murmur - GI/Abdominal GI/Abdominal exam: Present: normal bowel sounds, soft, no peritoneal signs. Absent: distended, tenderness - Extremities Exam Extremities exam: Present: warm, radial pulses palpable and symmetrical (b/l LE chronic venous stasis ). Absent: calf tenderness - Neurological Exam Neurological exam: Present: alert, oriented X3 - Psychiatric Psychiatric exam: Present: normal affect, normal mood
--- NOTE | 2017-08-27 12:16 | Physician Discharge Referral ---
Home Health/Hosp Referral Info Transfer to: Home Health Provider in Charge Post Discharge: PCP - Diagnosis (1) Atrial fibrillation with RVR Priority: Primary Status: Acute (2) Hypothyroidism Priority: Secondary Status: Chronic (3) Congestive heart failure Priority: Secondary Status: Chronic (4) HTN (hypertension) Priority: Secondary Status: Chronic (5) DVT prophylaxis Priority: Secondary Status: Acute - Respiratory Orders Smoking Cessation: Smoking cessation has been advised. For more information, call the [place] Tobacco Quit Line at 8-408-XFNT-NOW. - Services Needed Following services are medically necessary services: Nursing, Home Health Aide, Physical Therapy, Occupational Therapy - Transfer Medications Prescriptions: Digoxin [Lanoxin] 0.125 mg PO DAILY #30 tablet Diltiazem CD (24hr) [Cardizem CD] 240 mg PO DAILY #30 cap.er.24h Home Medications: Aspirin [Lo-Dose Aspirin EC] 81 mg PO DAILY 04/28/17 [History] Latanoprost [Xalatan] 1 drop OP QPM 04/28/17 [History] Levothyroxine [Synthroid] 100 mcg PO QAM 04/28/17 [History] Furosemide [Lasix] 20 mg PO BID #60 tablet 05/03/17 [Rx] Metoprolol XL (24 HR) Succ [Toprol Xl] 75 mg PO BID #90 tab.er.24h 05/03/17 [Rx] Potassium Chloride 20 meq PO BID #60 tab.er.prt 05/03/17 [Rx] Calcitonin,[place],Synthetic [Calcitonin-[place]] 1 spr NS AD 08/25/17 [History] Warfarin [Coumadin] 1 mg PO DAILY 08/25/17 [History] Digoxin [Lanoxin] 0.125 mg PO DAILY #30 tablet 08/27/17 [Rx] Diltiazem CD (24hr) [Cardizem CD] 240 mg PO DAILY #30 cap.er.24h 08/27/17 [Rx] Allergies/Adverse Reactions: 3 Allergy/AdvReac Type Severity Reaction Status Date / Time No Known Allergies Allergy Verified 04/28/17 12:18 Certification: Further, I certify that my clinical findings support that this patient is homebound (i.e. absences from home require considerable and taxing effort and are for medical reasons or alevism services or infrequently or short duration when for other reasons) because: Homebound Reason: Patient requires assistance of a person or device to safely leave home Attestation: My signature below is to certify that this patient is under my care and that I, or nurse practitioner, or a physician's registrar assistant working with me, has a face-to -face encounter with this patient.
[2017-08-27 16:17] VITALS: BP 131/75
[2017-08-27] MEDS ORDERED: Furosemide 40 MG TABLET PO SCH (17:00)
[2017-08-27] MEDS ORDERED: *HR* Warfarin 1 MG TABLET PO ONE (18:00)
[2017-08-29] MEDS ORDERED: *HR* Warfarin 2.5 MG TABLET PO SCH (18:00)
== END 2017-08-27 18:15 | disposition home health service (06) | DRG 308 ==
LOC: 2ANU 14:37 → EMEROO 14:37 → SUATTDRO 17:22 → 2ANU 17:47
PROVIDERS: ADMIT Family Medicine; ATTEND Internal Medicine